=== PATIENT | male | born 1975 | race American Indian/Alaskan Native ===

== ENCOUNTER 2017-09-22 22:56 | Emergency (ER) | payer MEDICAID ==
--- NOTE | 2017-09-23 00:34 | Emergency Department Report ---
- General Chief complaint: Skin Rash Stated complaint: RASH ON FEET Time Seen by Provider: 09/22/17 23:59 Source: patient Mode of arrival: Ambulatory Limitations: No Limitations - History of Present Illness Initial comments: Patient states that he was in nursing home and was released on September 08, and about 3 weeks ago started to notice an itchy rash on his trunk and extremities, especially itchy on his hands and feet; about 1 week ago, started to notice that the area on his left foot that he was scratching a lot started to become swollen and painful, popped a few spots to drain pus; denies fevers or pain with ambulation; H/O cellulitis on his left lower leg that he has taken bactrim and clindamycin in past MD complaint: rash Onset/Timin -: week(s) Tetanus Up to Date: unsure Location: chest, back, LUE, RUE, L hand, R hand, LLE, RLE, L foot, R foot Quality: burning Consistency: constant Worsens with: palpation, other (scratching) Associated symptoms: itching Treatments Prior to Arrival: Benadryl (helped a little with itching) - Related Data Previous Rx's Medication Instructions Recorded Last Taken Type Cephalexin [Keflex] 500 mg PO QID #40 capsule 09/23/17 Unknown Rx Permethrin [Elimite] 60 gm TP ONCE #1 cream..g. 09/23/17 Unknown Rx hydrOXYzine HCL [Atarax] 25 mg PO Q6HR PRN #20 tablet 09/23/17 Unknown Rx traMADol [Ultram 50 MG tab] 50 mg PO Q6HR PRN #10 tablet 09/23/17 Unknown Rx Allergies Allergy/AdvReac Type Severity Reaction Status Date / Time No Known Allergies Allergy Unverified 09/22/17 23:31 Abscess Boil HPI - HPI Chief Complaint: Skin Rash Stated Complaint: RASH ON FEET Time Seen by Provider: 09/22/17 23:59 Home Medications: Previous Rx's Medication Instructions Recorded Last Taken Type Cephalexin [Keflex] 500 mg PO QID #40 capsule 09/23/17 Unknown Rx Permethrin [Elimite] 60 gm TP ONCE #1 cream..g. 09/23/17 Unknown Rx hydrOXYzine HCL [Atarax] 25 mg PO Q6HR PRN #20 tablet 09/23/17 Unknown Rx traMADol [Ultram 50 MG tab] 50 mg PO Q6HR PRN #10 tablet 09/23/17 Unknown Rx Allergies/Adverse Reactions: Allergies Allergy/AdvReac Type Severity Reaction Status Date / Time No Known Allergies Allergy Unverified 09/22/17 23:31 ED Review of Systems ROS: Stated complaint: RASH ON FEET Other details as noted in HPI Constitutional: denies: chills, fever, weakness Respiratory: denies: cough, shortness of breath Cardiovascular: denies: chest pain, palpitations Gastrointestinal: denies: nausea, vomiting Musculoskeletal: back pain, other (left foot pain) Skin: rash, lesions ED Past Medical Hx - Surgical History Additional Surgical History: Left leg surgery - Social History Smoking Status: Current Every Day Smoker Substance Use Type: None - Medications Home Medications: Home Medications Medication Instructions Recorded Confirmed Last Taken Type Cephalexin [Keflex] 500 mg PO QID #40 capsule 09/23/17 Unknown Rx Permethrin [Elimite] 60 gm TP ONCE #1 cream..g. 09/23/17 Unknown Rx hydrOXYzine HCL [Atarax] 25 mg PO Q6HR PRN #20 tablet 09/23/17 Unknown Rx traMADol [Ultram 50 MG tab] 50 mg PO Q6HR PRN #10 tablet 09/23/17 Unknown Rx ED Physical Exam - General Limitations: No Limitations General appearance: alert, in no apparent distress - Head Head exam: Present: atraumatic, normocephalic, normal inspection - Eye Eye exam: Present: normal appearance, PERRL, EOMI - ENT ENT exam: Present: normal orophraynx, mucous membranes moist - Neck Neck exam: Present: full ROM - Respiratory Respiratory exam: Present: normal lung sounds bilaterally. Absent: respiratory distress, wheezes, rales, rhonchi, stridor - Cardiovascular Cardiovascular Exam: Present: regular rate, normal rhythm, normal heart sounds - Extremities Exam Extremities exam: Present: other (Left lower leg - old scars present on anterior aspect of leg, along with some divets in skin, nontender, no erythema or edema, no bleeding or drainage) - Neurological Exam Neurological exam: Present: alert, oriented X3, normal gait - Psychiatric Psychiatric exam: Present: normal affect, normal mood - Skin Skin exam: Present: other (Left foot - mild edema and erythema on medial aspect of foot with some excoriations, no active bleeding or drainage, mild TTP, no streaking present, no fluctuant areas) ED Course Vital Signs 09/22/17 23:17 Temperature 98.2 F Pulse Rate 85 Respiratory 16 Rate Blood Pressure 130/83 O2 Sat by Pulse 99 Oximetry ED Medical Decision Making - Medical Decision Making Discussed patient with Dr. Handley, plan made to treat for possible scabies and for his left foot cellulitis; told patient to complete ABX and to use elimite and follow up with PCP in 48 hours for re-assessment of his foot, or to return to ED sooner if he notices worsening of sxs like worse swelling, streaking erythema and fevers, he verbalized understanding Critical care attestation.: If time is entered above; I have spent that time in minutes in the direct care of this critically ill patient, excluding procedure time. ED Disposition Clinical Impression: Pruritic dermatitis, Cellulitis of left foot Disposition: DC- TO HOME OR SELFCARE Is pt being admited?: No Condition: Stable Instructions: Cellulitis (ED), Scabies (ED) Prescriptions: Cephalexin [Keflex] 500 mg PO QID #40 capsule hydrOXYzine HCL [Atarax] 25 mg PO Q6HR PRN #20 tablet PRN Reason: Itching Permethrin [Elimite] 60 gm TP ONCE #1 cream..g. traMADol [Ultram 50 MG tab] 50 mg PO Q6HR PRN #10 tablet PRN Reason: Pain Referrals: PRIMARY CARE,MD [Primary Care Provider] - 3-5 Days Time of Disposition: 00:40 Print Language: TURKISH
[2017-09-23 00:57] VITALS: BP 135/81
== END 2017-09-23 00:58 | disposition home or self-care (01) ==
LOC: ED 22:56
DX: L30.8 Other specified dermatitis (principal); L03.116 Cellulitis of left lower limb; F17.200 Nicotine dependence, unspecified, uncomplicated
CPT/HCPCS: 99282

== ENCOUNTER 2017-10-15 09:39 | Emergency (ER) | payer MEDICAID ==
[2017-10-15 10:18] VITALS: BP 126/89
--- NOTE | 2017-10-15 11:52 | Emergency Department Report ---
- General Chief complaint: Skin Rash Stated complaint: RASH Time Seen by Provider: 10/15/17 11:00 Source: patient Mode of arrival: Ambulatory Limitations: No Limitations - History of Present Illness Initial comments: This is a 41-year-old male nontoxic, well nourished in appearance, no acute signs of distress presents to the ED with c/o of itching with crusted circular rash to the back, fingers and feet. Patient is also complaining of left distal tib/fib region cellulitis. Patient stated he was seen her in the ED on 2016 and was diagnosed with scabies and left lower leg cellulitis and received prescription for Keflex and permethrin cream. Patient treated he did not take Keflex because he took one dose and patient that his symptoms had not improved of his cellulitis. Patient usually gets prescription for clindamycin and Bactrim. Patient that he return to the emergency room because now there is crusting today region as well as itching and has not subsided. Patient denies any joint swelling, joint redness, fever, chills, nausea, chest pain, shortness of breath, vomiting, headache or stiff neck. Denies any allergies or significant past medical history. MD complaint: rash, other (cellulitis) -: week(s) Tetanus Up to Date: yes Location: generalized Severity: mild Severity scale (0 -10): 8 Quality: burning Consistency: constant Improves with: none Worsens with: none Context: none Associated symptoms: itching Treatments Prior to Arrival: none - Related Data Previous Rx's Medication Instructions Recorded Last Taken Type Cephalexin [Keflex] 500 mg PO QID #40 capsule 09/23/17 Unknown Rx Permethrin [Elimite] 60 gm TP ONCE #1 cream..g. 09/23/17 Unknown Rx hydrOXYzine HCL [Atarax] 25 mg PO Q6HR PRN #20 tablet 09/23/17 Unknown Rx traMADol [Ultram 50 MG tab] 50 mg PO Q6HR PRN #10 tablet 09/23/17 Unknown Rx Clindamycin [Clindamycin CAP] 300 mg PO Q8H 7 Days cap 10/15/17 Unknown Rx Ivermectin (Nf) 15 mg PO DAILY 1 Days tablet 10/15/17 Unknown Rx Permethrin 5% [Acticin 5% CREAM] 1 applicatio TP ONCE #1 tube 10/15/17 Unknown Rx Allergies Allergy/AdvReac Type Severity Reaction Status Date / Time No Known Allergies Allergy Unverified 09/22/17 23:31 Abscess Boil HPI - HPI Chief Complaint: Skin Rash Stated Complaint: RASH Time Seen by Provider: 10/15/17 11:00 Home Medications: Previous Rx's Medication Instructions Recorded Last Taken Type Cephalexin [Keflex] 500 mg PO QID #40 capsule 09/23/17 Unknown Rx Permethrin [Elimite] 60 gm TP ONCE #1 cream..g. 09/23/17 Unknown Rx hydrOXYzine HCL [Atarax] 25 mg PO Q6HR PRN #20 tablet 09/23/17 Unknown Rx traMADol [Ultram 50 MG tab] 50 mg PO Q6HR PRN #10 tablet 09/23/17 Unknown Rx Clindamycin [Clindamycin CAP] 300 mg PO Q8H 7 Days cap 10/15/17 Unknown Rx Ivermectin (Nf) 15 mg PO DAILY 1 Days tablet 10/15/17 Unknown Rx Permethrin 5% [Acticin 5% CREAM] 1 applicatio TP ONCE #1 tube 10/15/17 Unknown Rx Allergies/Adverse Reactions: Allergies Allergy/AdvReac Type Severity Reaction Status Date / Time No Known Allergies Allergy Unverified 09/22/17 23:31 ED Review of Systems ROS: Stated complaint: RASH Other details as noted in HPI Constitutional: denies: chills, fever Eyes: denies: eye pain, eye discharge, vision change ENT: denies: ear pain, throat pain Respiratory: denies: cough, shortness of breath, wheezing Cardiovascular: denies: chest pain, palpitations Endocrine: no symptoms reported Gastrointestinal: denies: abdominal pain, nausea, diarrhea Genitourinary: denies: urgency, dysuria Musculoskeletal: denies: back pain, joint swelling, arthralgia Skin: pruritus, other (circular with crusting ). denies: rash, lesions Neurological: denies: headache, weakness, paresthesias Psychiatric: denies: anxiety, depression Hematological/Lymphatic: denies: easy bleeding, easy bruising ED Past Medical Hx - Past Medical History Previous Medical History?: No - Surgical History Past Surgical History?: Yes Additional Surgical History: Left leg surgery - Social History Smoking Status: Current Every Day Smoker Substance Use Type: Alcohol - Medications Home Medications: Home Medications Medication Instructions Recorded Confirmed Last Taken Type Cephalexin [Keflex] 500 mg PO QID #40 capsule 09/23/17 Unknown Rx Permethrin [Elimite] 60 gm TP ONCE #1 cream..g. 09/23/17 Unknown Rx hydrOXYzine HCL [Atarax] 25 mg PO Q6HR PRN #20 tablet 09/23/17 Unknown Rx traMADol [Ultram 50 MG tab] 50 mg PO Q6HR PRN #10 tablet 09/23/17 Unknown Rx Clindamycin [Clindamycin CAP] 300 mg PO Q8H 7 Days cap 10/15/17 Unknown Rx Ivermectin (Nf) 15 mg PO DAILY 1 Days tablet 10/15/17 Unknown Rx Permethrin 5% [Acticin 5% CREAM] 1 applicatio TP ONCE #1 tube 10/15/17 Unknown Rx ED Physical Exam - General Limitations: No Limitations General appearance: alert, in no apparent distress - Head Head exam: Present: atraumatic, normocephalic - Eye Eye exam: Present: normal appearance - ENT ENT exam: Present: mucous membranes moist - Neck Neck exam: Present: normal inspection - Respiratory Respiratory exam: Present: normal lung sounds bilaterally. Absent: respiratory distress - Cardiovascular Cardiovascular Exam: Present: regular rate, normal rhythm. Absent: systolic murmur, diastolic murmur, rubs, gallop - GI/Abdominal GI/Abdominal exam: Present: soft, normal bowel sounds - Rectal Rectal exam: Present: deferred - Extremities Exam Extremities exam: Present: normal inspection, full ROM, tenderness, normal capillary refill. Absent: pedal edema, joint swelling, calf tenderness - Expanded Lower Extremity Exam Left Hip exam: Present: normal inspection, full ROM Upper Leg exam: Present: normal inspection, full ROM Knee exam: Present: normal inspection, full ROM Lower Leg exam: Present: normal inspection, full ROM, tenderness, erythema. Absent: swelling, abrasion, laceration, ecchymosis, deformity, crepidus, dislocation, palpable cord, Dominic's sign Ankle exam: Present: normal inspection, full ROM Foot/Toe exam: Present: normal inspection, full ROM Neuro vascular tendon exam: Present: no vascular compromise. Absent: pulse deficit, abnormal cap refill, motor deficit, sensory deficit, tendon deficit, extremity cold to touch, pallor, abnormal 2-point discrimination, decreased fine /light touch, foot drop, peroneal nerve deficit, significant pain with passive ROM of distal joint Gait: Positive: observed and normal 1 - cellulitis - Back Exam Back exam: Present: normal inspection, full ROM. Absent: tenderness, CVA tenderness (R), CVA tenderness (L), muscle spasm, paraspinal tenderness, vertebral tenderness, rash noted - Neurological Exam Neurological exam: Present: alert, oriented X3 - Psychiatric Psychiatric exam: Present: normal affect, normal mood - Skin Skin exam: Present: warm, dry, intact, normal color, other (left foot and bilateral swab hands and back- circular excoriations.). Absent: rash - Other Other exam information: Left lower leg scars present with slight erythema. Nontender or edema or pus or drainage noted. No induration or fluctuance. ED Course Vital Signs 10/15/17 10:15 Temperature 98.9 F Pulse Rate 92 H Respiratory 16 Rate Blood Pressure 126/89 O2 Sat by Pulse 97 Oximetry - Reevaluation(s) Reevaluation #1: 10/15/17 12:00 Patient is speaking in full sentences with no signs of distress noted. ED Medical Decision Making - Medical Decision Making 41-year-old male that presents with a crusty scabies and cellulitis of left lower leg. Patient is stable and was examined by me. There is no signs of any joint swelling or joint redness. No signs of joint cellulitis. Patient is treated with gentamicin, ivermectin and permethrin at d/c. Patient was instructed Follow-up with a primary care doctor in 24 hours or if symptoms worsen and continue return to emergency room as soon as possible. At time time of discharge, the patient does not seem toxic or ill in appearance. No acute signs of distress noted. Patient agrees to discharge treatment plan of care. No further questions noted by the patient. Critical care attestation.: If time is entered above; I have spent that time in minutes in the direct care of this critically ill patient, excluding procedure time. ED Disposition Clinical Impression: Scabies Cellulitis Qualifiers: Site of cellulitis: extremity Site of cellulitis of extremity: lower extremity Laterality: left Qualified Code(s): L03.116 - Cellulitis of left lower limb Disposition: DC- TO HOME OR SELFCARE Is pt being admited?: No Does the pt Need Aspirin: No Condition: Stable Instructions: Scabies (ED), Permethrin (On the skin), Ivermectin (By mouth), Clindamycin (By mouth) Additional Instructions: Follow-up with a primary care doctor in 24 hours or if symptoms worsen and continue return to emergency room as soon as possible. Do not consume any alcohol while taking antibiotics Prescriptions: Clindamycin [Clindamycin CAP] 300 mg PO Q8H 7 Days cap Ivermectin (Nf) 15 mg PO DAILY 1 Days tablet Permethrin 5% [Acticin 5% CREAM] 1 applicatio TP ONCE #1 tube Referrals: PRIMARY CARE, [Primary Care Provider] - 3-5 Days [facility] MD [Staff Physician] - 3-5 Days [facility] [Outside] - 3-5 Days [facility] [Outside] - 3-5 Days Forms: Work/School Release Form(ED)
== END 2017-10-15 12:25 | disposition home or self-care (01) ==
LOC: ED 09:39
DX: L03.116 Cellulitis of left lower limb (principal); B86 Scabies; F17.200 Nicotine dependence, unspecified, uncomplicated; Z98.890 Other specified postprocedural states
CPT/HCPCS: 99282

== ENCOUNTER 2018-07-03 20:56 | Emergency (ER) | payer MEDICAID ==
[2018-07-03 21:55] LABS: Basophils # (Auto) 0.1 K/mm3 (0.0-0.1); Basophils % (Auto) 0.8 % (0.0-1.8); Eosinophils # (Auto) 0.3 K/mm3 (0.0-0.4); Eosinophils % (Auto) 2.9 % (0.0-4.3); Hematocrit 38.7 % (35.5-45.6); Hemoglobin 12.5 gm/dl (11.8-15.2); Lymphocytes # (Auto) 1.7 K/mm3 (1.2-5.4); Lymphocytes % (Auto) 17.1 % (13.4-35.0); Mean Corpuscular HGB Conc 32 % (32-34); Mean Corpuscular Volume 79 fl (84-94); Monocytes # (Auto) 1.3 K/mm3 (0.0-0.8); Monocytes % (Auto) 13.3 % (0.0-7.3); Platelet Count 309 K/mm3 (140-440); Red Cell Distribution Width 17.4 % (13.2-15.2)
[2018-07-03 22:02] LABS: Mean Corpuscular Hemoglobin 26 pg (28-32)
[2018-07-03 22:09] LABS: BUN/Creatinine Ratio 14; Blood Urea Nitrogen 13 mg/dL (9-20); Calcium 9.6 mg/dL (8.4-10.2); Hemolysis Index 13
[2018-07-04 00:14] LABS: Bilirubin,Urine NEG (Negative); Blood,Urine NEG (Negative); Color,Urine Yellow (Yellow); Mucus,Urine FEW /HPF; Protein,Urine <15 mg/dL mg/dL (Negative); Urobilinogen,Urine < 2.0 mg/dL (<2.0)
[2018-07-04 01:43] LABS: Amphetamine Screen,Urine PRESUMPTIVE NEGATIVE; Cannabinoid Screen,Urine PRESUMPTIVE NEGATIVE; Cocaine Screen,Urine PRESUMPTIVE NEGATIVE; Methadone Screen,Urine PRESUMPTIVE NEGATIVE; Opiate Screen,Urine PRESUMPTIVE NEGATIVE
[2018-07-04 02:11] LABS: Benzodiazepines Screen,Urine PRESUMPTIVE POSITIVE
[2018-07-04] MEDS ORDERED: NORCO 7.5/325 ONE (04:10)
[2018-07-04] MEDS ORDERED: NORCO 7.5/325 PO ONE (04:10)
[2018-07-04 09:29] VITALS: BP 113/65
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
== END 2018-07-04 18:00 | disposition home or self-care (01) ==
LOC: ED 20:56
DX: F32.9 Major depressive disorder, single episode, unspecified (principal); M79.605 Pain in left leg; L90.5 Scar conditions and fibrosis of skin; F17.200 Nicotine dependence, unspecified, uncomplicated
CPT/HCPCS: 36415; 80048; 80307; 81001; 85025; 99283; G0480; 80320

== ENCOUNTER 2018-07-04 22:32 | Emergency (ER) | payer MEDICAID ==
[2018-07-04 23:14] VITALS: BP 124/95
[2018-07-05] MEDS ORDERED: TYLENOL ONE (01:50)
[2018-07-05] MEDS ORDERED: TYLENOL PO ONE (01:52)
== END 2018-07-04 23:40 | disposition left against medical advice (07) ==
LOC: ED 22:32
DX: L03.116 Cellulitis of left lower limb (principal); Z53.21 Procedure and treatment not carried out due to patient leaving prior to being seen by health care provider

== ENCOUNTER → 2018-07-04 | Emergency (ER) | payer MEDICAID ==
[2018-07-04 19:31] VITALS: BP 119/78
== END ==
LOC: ED 19:10
DX: F32.9 Major depressive disorder, single episode, unspecified (principal); Z53.21 Procedure and treatment not carried out due to patient leaving prior to being seen by health care provider

== ENCOUNTER 2018-07-05 20:02 | Emergency (ER) | payer MEDICAID ==
[2018-07-05 21:54] LABS: Basophils # (Auto) 0.1 K/mm3 (0.0-0.1); Basophils % (Auto) 0.8 % (0.0-1.8); Eosinophils # (Auto) 0.1 K/mm3 (0.0-0.4); Eosinophils % (Auto) 0.5 % (0.0-4.3); Hematocrit 42.1 % (35.5-45.6); Hemoglobin 13.6 gm/dl (11.8-15.2); Lymphocytes # (Auto) 1.9 K/mm3 (1.2-5.4); Lymphocytes % (Auto) 13.4 % (13.4-35.0); Mean Corpuscular HGB Conc 32 % (32-34); Mean Corpuscular Volume 78 fl (84-94); Monocytes # (Auto) 1.8 K/mm3 (0.0-0.8); Monocytes % (Auto) 12.1 % (0.0-7.3); Platelet Count 338 K/mm3 (140-440); Red Blood Count 5.38 M/mm3 (3.65-5.03); Red Cell Distribution Width 17.2 % (13.2-15.2)
[2018-07-05 21:56] LABS: Mean Corpuscular Hemoglobin 25 pg (28-32)
[2018-07-05 22:09] LABS: BUN/Creatinine Ratio 15; Blood Urea Nitrogen 15 mg/dL (9-20); Calcium 9.9 mg/dL (8.4-10.2); Hemolysis Index 20
[2018-07-05] MEDS ORDERED: VITAMIN B-1 100 MG, FOLVITE 1 MG, INFUVITE 10 ML in NACL 0.9% 1000 ML 1,000 ML IV ONE (23:08)
[2018-07-05] MEDS ORDERED: NACL 0.9% 1000 ML 1,000 ML IV ONE (23:09)
[2018-07-05] MEDS ORDERED: ATIVAN IM PRN (23:22)
[2018-07-05] MEDS ORDERED: HALDOL IM PRN (23:22)
[2018-07-06 00:53] LABS: BUN/Creatinine Ratio 14; Blood Urea Nitrogen 14 mg/dL (9-20); Calcium 8.7 mg/dL (8.4-10.2); Hemolysis Index 5
--- NOTE | 2018-07-06 01:01 | Emergency Department Report ---
ED General Adult HPI - General Chief complaint: Psych Stated complaint: LEFT LEG WOUND/MH EVAL Time Seen by Provider: 07/05/18 23:06 Source: patient, EMS (ems notes not available at time of chart dictation), RN notes reviewed, old records reviewed Mode of arrival: Stretcher Limitations: Altered Mental Status, Physical Limitation, Other (patient is intoxicated) - History of Present Illness Initial comments: This is a 42-year-old gentleman who is not known to this provider previously, who presents to the ER with alcohol intoxication. He is very sleepy, and can therefore not describe exacerbating or relieving factors. When I asked the patient open and close ended questions, he turns over and tries to go to sleep. No additional history is available at this time. Apparently, the patient presented 2 days ago with a complaint of depression, and was seen by the crisis team and cleared for discharge. -: unknown Quality: other Consistency: other Improves with: other Worsens with: other Associated Symptoms: other - Related Data Home Medications Medication Instructions Recorded Confirmed Last Taken rOPINIRole [Requip] 0.25 mg PO DAILY 07/05/18 07/05/18 Unknown Previous Rx's Medication Instructions Recorded Last Taken Type FLUoxetine [PROzac] 20 mg PO QDAY capsule 06/28/18 Unknown Rx traZODone [Desyrel] 50 mg PO QHS PRN tablet 06/28/18 Unknown Rx Allergies Allergy/AdvReac Type Severity Reaction Status Date / Time No Known Allergies Allergy Verified 07/06/18 07:19 ED Review of Systems ROS: Stated complaint: LEFT LEG WOUND/MH EVAL Other details as noted in HPI Comment: Unobtainable due to pts medical conditions ED Past Medical Hx - Past Medical History Hx Hypertension: No Hx Heart Attack/AMI: No Hx Congestive Heart Failure: No Hx Diabetes: No Hx Deep Vein Thrombosis: No Hx Asthma: No Hx COPD: No Additional medical history: Chronic Lower leg wound - Surgical History Hx Coronary Stent: No Hx Pacemaker: No Hx Internal Defibrillator: No Hx Appendectomy: No Additional Surgical History: Left leg surgery, "about 12 sxs since 2013" - Social History Smoking Status: Current Every Day Smoker Substance Use Type: Alcohol - Medications Home Medications: Home Medications Medication Instructions Recorded Confirmed Last Taken Type FLUoxetine [PROzac] 20 mg PO QDAY capsule 06/28/18 07/05/18 Unknown Rx traZODone [Desyrel] 50 mg PO QHS PRN tablet 06/28/18 07/05/18 Unknown Rx rOPINIRole [Requip] 0.25 mg PO DAILY 07/05/18 07/05/18 Unknown History ED Physical Exam - General General appearance: appears intoxicated, lethargic - Head Head exam: Present: atraumatic, normocephalic - Eye Eye exam: Present: EOMI. Absent: normal appearance (pupils 1 mm and reactive to light) - ENT ENT exam: Present: normal exam, normal orophraynx, normal external ear exam - Neck Neck exam: Present: normal inspection. Absent: tenderness, meningismus - Respiratory Respiratory exam: Present: normal lung sounds bilaterally. Absent: respiratory distress, wheezes, rales, rhonchi, stridor, chest wall tenderness, accessory muscle use, decreased breath sounds, prolonged expiratory - Cardiovascular Cardiovascular Exam: Present: regular rate, normal rhythm, normal heart sounds. Absent: bradycardia, tachycardia, irregular rhythm, systolic murmur, diastolic murmur, rubs, gallop - GI/Abdominal GI/Abdominal exam: Present: soft, normal bowel sounds. Absent: distended, tenderness, guarding, rebound, rigid, pulsatile mass - Extremities Exam Extremities exam: Present: normal inspection (back appearing wounds in the lower extremities, left greater than right, with no redness, pus or streaking, and soft compartments), other (2+ pulses noted in the bilateral upper, lower extremities. Compartments soft. No long bony tenderness. The pelvis is stable.). Absent: tenderness, calf tenderness - Back Exam Back exam: Absent: tenderness, CVA tenderness (R), paraspinal tenderness - Neurological Exam Neurological exam: Present: altered - Psychiatric Psychiatric exam: Present: other (patient is sleepy and does not answer all questions) ED Course Vital Signs 07/05/18 07/06/18 20:52 05:54 Temperature 98.6 F 97.7 F Pulse Rate 94 H 57 L Respiratory 18 18 Rate Blood Pressure 117/76 Blood Pressure 112/72 [Left] O2 Sat by Pulse 97 96 Oximetry - Reevaluation(s) Reevaluation #1: 07/06/18 01:05 Differential diagnosis, including but not limited to: Alcohol intoxication, intracranial injury, cervical spine injury, dehydration, history of polysubstance use Assessment and plan: 42-year-old male who was recently seen and evaluated by the crisis mental health team within the past he presents with alcohol intoxication. The patient clearly cannot care for himself and is very impaired and is therefore placed on a 2013. Initial laboratory studies suggested dehydration, and leukocytosis. This leukocytosis is most likely a stress reaction. Based on his current wound to history and physical, especially compared to his prior visit records, I am not suspicious for bacterial infection. The patient had a urinalysis 2 days ago which was negative for urinary tract infection. The patient at one point during his stay in the emergency room that somewhat agitated, and required Haldol and Ativan for his safety, and diagnostic workup. He is given IV fluids and a banana bag. 07/06/18 01:07 Reevaluation #2: 07/06/18 01:35 Care is transferred to the overnight physician, Dr. Mendoza, to reassess patient for clinical sobriety. With plan to discharge patient when alert and oriented 3, able to walk with a steady gait, and able to exhibit rational decision making capacity. At this point time, he does not require a 1013. ED Medical Decision Making - Lab Data Result diagrams: 07/05/18 21:40 07/06/18 00:24 Vital Signs 07/05/18 20:52 Temperature 98.6 F Pulse Rate 94 H Respiratory 18 Rate Blood Pressure 117/76 O2 Sat by Pulse 97 Oximetry Lab Results 07/05/18 07/05/18 07/05/18 Range/Units 21:40 21:40 21:40 WBC (4.5-11.0) K/mm3 RBC (3.65-5.03) M/mm3 Hgb (11.8-15.2) gm/dl Hct (35.5-45.6) % MCV (84-94) fl MCH (28-32) pg MCHC (32-34) % RDW (13.2-15.2) % Plt Count (140-440) K/mm3 Lymph % (Auto) (13.4-35.0) % Castro % (Auto) (0.0-7.3) % Eos % (Auto) (0.0-4.3) % Baso % (Auto) (0.0-1.8) % Lymph # (1.2-5.4) K/mm3 Castro # (0.0-0.8) K/mm3 Eos # (0.0-0.4) K/mm3 Baso # (0.0-0.1) K/mm3 Seg Neutrophils % (40.0-70.0) % Seg Neutrophils # (1.8-7.7) K/mm3 Sodium 134 L (137-145) mmol/L Potassium 4.7 (3.6-5.0) mmol/L Chloride 97.2 L (98-107) mmol/L Carbon Dioxide 16 L D (22-30) mmol/L Anion Gap 26 mmol/L BUN 15 (9-20) mg/dL Creatinine 1.0 (0.8-1.5) mg/dL Estimated GFR > 60 ml/min BUN/Creatinine Ratio 15 % Glucose 80 (75-100) mg/dL Calcium 9.9 (8.4-10.2) mg/dL Magnesium (1.7-2.3) mg/dL Total Creatine Kinase (55-170) units/L Salicylates < 0.3 L (2.8-20.0) mg/dL Acetaminophen < 5.0 L (10.0-30.0) ug/mL Plasma/Serum Alcohol (0-0.07) % 07/05/18 07/05/18 07/05/18 Range/Units 21:40 21:40 23:30 WBC 14.5 H (4.5-11.0) K/mm3 RBC 5.38 H (3.65-5.03) M/mm3 Hgb 13.6 (11.8-15.2) gm/dl Hct 42.1 (35.5-45.6) % MCV 78 L (84-94) fl MCH 25 L (28-32) pg MCHC 32 (32-34) % RDW 17.2 H (13.2-15.2) % Plt Count 338 (140-440) K/mm3 Lymph % (Auto) 13.4 (13.4-35.0) % Castro % (Auto) 12.1 H (0.0-7.3) % Eos % (Auto) 0.5 (0.0-4.3) % Baso % (Auto) 0.8 (0.0-1.8) % Lymph # 1.9 (1.2-5.4) K/mm3 Castro # 1.8 H (0.0-0.8) K/mm3 Eos # 0.1 (0.0-0.4) K/mm3 Baso # 0.1 (0.0-0.1) K/mm3 Seg Neutrophils % 73.2 H (40.0-70.0) % Seg Neutrophils # 10.6 H (1.8-7.7) K/mm3 Sodium (137-145) mmol/L Potassium (3.6-5.0) mmol/L Chloride (98-107) mmol/L Carbon Dioxide (22-30) mmol/L Anion Gap mmol/L BUN (9-20) mg/dL Creatinine (0.8-1.5) mg/dL Estimated GFR ml/min BUN/Creatinine Ratio % Glucose (75-100) mg/dL Calcium (8.4-10.2) mg/dL Magnesium 2.30 (1.7-2.3) mg/dL Total Creatine Kinase 213 H (55-170) units/L Salicylates (2.8-20.0) mg/dL Acetaminophen (10.0-30.0) ug/mL Plasma/Serum Alcohol 0.17 H (0-0.07) % 08//18 Range/Units 00:24 WBC (4.5-11.0) K/mm3 RBC (3.65-5.03) M/mm3 Hgb (11.8-15.2) gm/dl Hct (35.5-45.6) % MCV (84-94) fl MCH (28-32) pg MCHC (32-34) % RDW (13.2-15.2) % Plt Count (140-440) K/mm3 Lymph % (Auto) (13.4-35.0) % Castro % (Auto) (0.0-7.3) % Eos % (Auto) (0.0-4.3) % Baso % (Auto) (0.0-1.8) % Lymph # (1.2-5.4) K/mm3 Castro # (0.0-0.8) K/mm3 Eos # (0.0-0.4) K/mm3 Baso # (0.0-0.1) K/mm3 Seg Neutrophils % (40.0-70.0) % Seg Neutrophils # (1.8-7.7) K/mm3 Sodium 137 (137-145) mmol/L Potassium 4.5 (3.6-5.0) mmol/L Chloride 96.8 L (98-107) mmol/L Carbon Dioxide 19 L (22-30) mmol/L Anion Gap 26 mmol/L BUN 14 (9-20) mg/dL Creatinine 1.0 (0.8-1.5) mg/dL Estimated GFR > 60 ml/min BUN/Creatinine Ratio 14 % Glucose 105 H (75-100) mg/dL Calcium 8.7 (8.4-10.2) mg/dL Magnesium (1.7-2.3) mg/dL Total Creatine Kinase (55-170) units/L Salicylates (2.8-20.0) mg/dL Acetaminophen (10.0-30.0) ug/mL Plasma/Serum Alcohol (0-0.07) % - Radiology Data Radiology results: pending Critical care attestation.: If time is entered above; I have spent that time in minutes in the direct care of this critically ill patient, excluding procedure time. ED Disposition Clinical Impression: Alcohol abuse Disposition: DC-01 TO HOME OR SELFCARE Is pt being admited?: No Does the pt Need Aspirin: No Condition: Stable Instructions: Polysubstance Abuse (ED) Additional Instructions: Discontinue consumption of alcohol and illegal drugs. Follow-up with the primary care doctor or mental health specialist within the next 7-10 days. Long -term complications of alcohol consumption included disability, loss of quality of life, paralysis. Please return to the ER right away with new, worsening or different symptoms, homicidality or suicidality, projectile vomiting, change in mental status, inability to tolerate liquid feeds. Referrals: PRIMARY CARE, [Primary Care Provider] - 3-5 Days [facility] [Provider Group] - [facility]
--- NOTE | 2018-07-06 01:28 | Cat Scan Report ---
FINAL REPORT EXAM: CT HEAD/BRAIN WO CON HISTORY: etoh ams TECHNIQUE: CT was performed from the foramen magnum through the vertex in the axial plane without the use of intravenous contrast. PRIORS: None. FINDINGS: The rivera/white matter attenuation pattern is normal. There is no mass lesion or mass effect. There are no abnormal extra-axial fluid collections. There is no evidence of acute intracranial hemorrhage or infarct. The ventricles are of normal size and configuration. The skull and orbits are unremarkable. The visualized paranasal sinuses are clear. IMPRESSION: Normal CT of the head.
--- NOTE | 2018-07-06 02:03 | Cat Scan Report ---
FINAL REPORT EXAM: CT CERVICAL SPINE WO CON HISTORY: etoh ams TECHNIQUE: Helical axial CT imaging of the cervical spine. Images are reconstructed in the sagittal and coronal planes. PRIORS: None. FINDINGS: The vertebral bodies have normal height and alignment. There is no evidence of fracture or subluxation. There is degenerative disc disease at C4-5 and C6-7. The paraspinous soft tissues are unremarkable. IMPRESSION: No evidence of acute fracture or subluxation.
[2018-07-06 05:54] VITALS: BP 112/72
== END 2018-07-06 05:50 | disposition home or self-care (01) ==
LOC: ED 20:02
DX: F10.10 Alcohol abuse, uncomplicated (principal); F17.200 Nicotine dependence, unspecified, uncomplicated
CPT/HCPCS: 36415; 70450; 72125; 80048; 82550; 83735; 85025; 96365; 96366; 96372; 99285; G0480; J1630; J2060; J3411; J7030; 80320

== ENCOUNTER 2018-07-06 05:43 | Emergency (ER) | payer MEDICAID ==
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
[2018-07-06 18:44] VITALS: BP 142/96
== END 2018-07-06 21:00 | disposition left against medical advice (07) ==
LOC: ED 05:43
DX: F32.89 Other specified depressive episodes (principal); F10.10 Alcohol abuse, uncomplicated; F14.10 Cocaine abuse, uncomplicated; F17.200 Nicotine dependence, unspecified, uncomplicated
CPT/HCPCS: 99283

== ENCOUNTER 2018-07-08 01:27 | Emergency (ER) | payer MEDICAID ==
[2018-07-08 04:00] LABS: Hematocrit 39.6 % (35.5-45.6); Mean Corpuscular HGB Conc 33 % (32-34); Mean Corpuscular Volume 78 fl (84-94); Platelet Count 315 K/mm3 (140-440); Red Blood Count 5.09 M/mm3 (3.65-5.03); Red Cell Distribution Width 16.5 % (13.2-15.2)
[2018-07-08 04:04] LABS: BUN/Creatinine Ratio 16; Blood Urea Nitrogen 21 mg/dL (9-20); Calcium 9.4 mg/dL (8.4-10.2); Hemolysis Index 178
[2018-07-08 04:07] LABS: Mean Corpuscular Hemoglobin 26 pg (28-32)
[2018-07-08 04:40] LABS: Bilirubin,Urine NEG (Negative); Blood,Urine NEG (Negative); Color,Urine Yellow (Yellow); Protein,Urine <15 mg/dL mg/dL (Negative); Sperm,Urine FEW /HPF (NP)
[2018-07-08 04:43] LABS: Amphetamine Screen,Urine PRESUMPTIVE NEGATIVE; Cannabinoid Screen,Urine PRESUMPTIVE NEGATIVE; Methadone Screen,Urine PRESUMPTIVE NEGATIVE; Opiate Screen,Urine PRESUMPTIVE NEGATIVE
[2018-07-08 04:56] LABS: Benzodiazepines Screen,Urine PRESUMPTIVE POSITIVE; Cocaine Screen,Urine PRESUMPTIVE POSITIVE
[2018-07-08 06:47] LABS: Anisocytosis 1+; Band Neutrophils # (Manual) 0.3 K/mm3; Hypochromasia 1+; Ovalocytes Few; Promyelocytes # (Manual) 0.3 K/mm3; Total Cells Counted 100
[2018-07-08] MEDS ORDERED: ATIVAN IM PRN (07:04)
[2018-07-08] MEDS ORDERED: HALDOL IM PRN (07:04)
[2018-07-08] MEDS ORDERED: TYLENOL PO PRN (07:04)
[2018-07-08] MEDS ORDERED: LIBRIUM PO PRN ×2 (07:05)
--- NOTE | 2018-07-08 07:06 | Emergency Department Report ---
ED General Adult HPI - General Chief complaint: Psych Stated complaint: SUICIDAL; LT LEG PAIN Time Seen by Provider: 07/08/18 06:59 Source: patient, RN notes reviewed Mode of arrival: Ambulatory Limitations: Other (the patient is a poor historian) - History of Present Illness Initial comments: This is a 42-year-old gentleman who I have evaluated in the past. He has a history of alcohol abuse and polysubstance abuse. He presents to the ER with a complaint of suicidality. He reports feeling depressed and hopeless because his son was taken away from him. He will not answer whether or not he has a plan to kill himself, and he will not answer whether or not he has access to guns or firearms. The patient declines to answer additional questions in the emergency room, and prefers to go to sleep. The patient has been seen in this ER multiple times within the past week and a half for nonspecific psychiatric complaints. I personally evaluated him for alcohol intoxication a few days ago. He was seen in the past by the crisis team and given outpatient resources. He has been seen by multiple physicians within this emergency department for various symptoms. -: unknown Radiation: other Quality: other Consistency: other Improves with: other Worsens with: other Associated Symptoms: other Treatments Prior to Arrival: other - Related Data Home Medications Medication Instructions Recorded Confirmed Last Taken rOPINIRole [Requip] 0.25 mg PO DAILY 07/05/18 07/05/18 Unknown Previous Rx's Medication Instructions Recorded Last Taken Type FLUoxetine [PROzac] 20 mg PO QDAY capsule 06/28/18 Unknown Rx traZODone [Desyrel] 50 mg PO QHS PRN tablet 06/28/18 Unknown Rx Allergies Allergy/AdvReac Type Severity Reaction Status Date / Time No Known Allergies Allergy Verified 07/06/18 07:19 ED Review of Systems ROS: Stated complaint: SUICIDAL; LT LEG PAIN Other details as noted in HPI Constitutional: malaise Psychiatric: depression, suicidal thoughts ED Past Medical Hx - Past Medical History Hx Hypertension: No Hx Heart Attack/AMI: No Hx Congestive Heart Failure: No Hx Diabetes: No Hx Deep Vein Thrombosis: No Hx Asthma: No Hx COPD: No Additional medical history: Chronic Lower leg wound - Surgical History Hx Coronary Stent: No Hx Pacemaker: No Hx Internal Defibrillator: No Hx Appendectomy: No Additional Surgical History: Left leg surgery, "about 12 sxs since 2013" - Social History Smoking Status: Current Every Day Smoker Substance Use Type: Cocaine - Medications Home Medications: Home Medications Medication Instructions Recorded Confirmed Last Taken Type FLUoxetine [PROzac] 20 mg PO QDAY capsule 06/28/18 07/05/18 Unknown Rx traZODone [Desyrel] 50 mg PO QHS PRN tablet 06/28/18 07/05/18 Unknown Rx rOPINIRole [Requip] 0.25 mg PO DAILY 07/05/18 07/05/18 Unknown History ED Physical Exam - General Limitations: Other (patient will not answer most questions.) General appearance: in no apparent distress - Head Head exam: Present: atraumatic, normocephalic - Eye Eye exam: Present: normal appearance - ENT ENT exam: Present: normal exam, normal orophraynx, normal external ear exam - Neck Neck exam: Present: normal inspection, full ROM. Absent: tenderness, meningismus - Respiratory Respiratory exam: Present: normal lung sounds bilaterally. Absent: respiratory distress, wheezes, rales, rhonchi, stridor, chest wall tenderness, accessory muscle use, decreased breath sounds, prolonged expiratory - Cardiovascular Cardiovascular Exam: Present: normal rhythm, tachycardia, normal heart sounds - GI/Abdominal GI/Abdominal exam: Present: soft. Absent: distended, tenderness, guarding, rebound, rigid, pulsatile mass - Extremities Exam Extremities exam: Present: normal inspection, full ROM, normal capillary refill , other (2+ pulses noted in the bilateral upper, lower extremities. Compartments soft. No long bony tenderness. The pelvis is stable.). Absent: tenderness, pedal edema, joint swelling, calf tenderness - Back Exam Back exam: Present: normal inspection, full ROM. Absent: tenderness, CVA tenderness (R), paraspinal tenderness, vertebral tenderness - Neurological Exam Neurological exam: Present: other (patient noted to be walking without distress. 5 out of 5 strength in 4 extremities. No obvious facial droop. Patient will not participate with the rest of the neurologic examination.) - Psychiatric Psychiatric exam: Present: depressed, suicidal ideation - Skin Skin exam: Present: warm, dry ED Course Vital Signs 07/08/18 01:31 Temperature 98.8 F Pulse Rate 107 H Respiratory 18 Rate Blood Pressure 139/88 O2 Sat by Pulse 95 Oximetry ED Medical Decision Making - Lab Data Result diagrams: 07/08/18 03:18 08/27/18 03:13 Vital Signs 07/08/18 01:31 Temperature 98.8 F Pulse Rate 107 H Respiratory 18 Rate Blood Pressure 139/88 O2 Sat by Pulse 95 Oximetry Labs 07/08/18 07/08/18 07/08/18 03:13 03:13 03:13 WBC RBC Hgb Hct MCV MCH MCHC RDW Plt Count Walton % (Auto) Add Manual Diff Total Counted Seg Neuts % (Manual) Band Neutrophils % Lymphocytes % (Manual) Reactive Lymphs % (Man) Monocytes % (Manual) Eosinophils % (Manual) Basophils % (Manual) Metamyelocytes % Myelocytes % Promyelocytes % Blast Cells % Nucleated RBC % Seg Neutrophils # Man Band Neutrophils # Lymphocytes # (Manual) Abs React Lymphs (Man) Monocytes # (Manual) Eosinophils # (Manual) Basophils # (Manual) Metamyelocytes # Myelocytes # Promyelocytes # Blast Cells # WBC Morphology Hypersegmented Neuts Hyposegmented Neuts Hypogranular Neuts Smudge Cells Toxic Granulation Toxic Vacuolation Dohle Bodies Pelger-Huet Anomaly Natty Rods Platelet Estimate Clumped Platelets Plt Clumps, EDTA Large Platelets Giant Platelets Platelet Satelliting Plt Morphology Comment RBC Morphology Dimorphic RBCs Polychromasia Hypochromasia Poikilocytosis Anisocytosis Microcytosis Macrocytosis Spherocytes Pappenheimer Bodies Sickle Cells Target Cells Tear Drop Cells Ovalocytes Helmet Cells Olvera-Spickard Bodies [place] Rings Murtaza Cells Bite Cells Crenated Cell Elliptocytes Acanthocytes (Spur) Rouleaux Hemoglobin C Crystals Schistocytes Malaria parasites Romario Bodies Hem Pathologist Commnt Sodium 132 L Potassium 5.8 H D Chloride 93.5 L Carbon Dioxide 25 Anion Gap 19 BUN 21 H Creatinine 1.3 Estimated GFR > 60 BUN/Creatinine Ratio 16 Glucose 103 H Calcium 9.4 Total Creatine Kinase Urine Color Urine Turbidity Urine pH Ur Specific [place] Urine Protein Urine Glucose (UA) Urine Ketones Urine Blood Urine Nitrite Urine Bilirubin Urine Urobilinogen Ur Leukocyte Esterase Urine WBC (Auto) Urine RBC (Auto) U Epithel Cells (Auto) Urine Sperm Salicylates < 0.3 L Urine Opiates Screen Urine Methadone Screen Acetaminophen < 5.0 L Ur Barbiturates Screen Ur Phencyclidine Scrn Ur Amphetamines Screen U Benzodiazepines Scrn Urine Cocaine Screen U Marijuana (THC) Screen Drugs of Abuse Note Plasma/Serum Alcohol 07/08/18 07/08/18 07/08/18 03:13 03:13 03:18 WBC 13.7 H RBC 5.09 H Hgb 13.0 Hct 39.6 MCV 78 L MCH 26 L MCHC 33 RDW 16.5 H Plt Count 315 Walton % (Auto) Requirements Engineer Add Manual Diff Complete Total Counted 100 Seg Neuts % (Manual) 58.0 Band Neutrophils % 2.0 Lymphocytes % (Manual) 13.0 L Reactive Lymphs % (Man) 0 Monocytes % (Manual) 17.0 H Eosinophils % (Manual) 6.0 H Basophils % (Manual) 2.0 H Metamyelocytes % 0 Myelocytes % 0 Promyelocytes % 2.0 Blast Cells % 0 Nucleated RBC % Not Reportable Seg Neutrophils # Man 7.9 H Band Neutrophils # 0.3 Lymphocytes # (Manual) 1.8 Abs React Lymphs (Man) 0.0 Monocytes # (Manual) 2.3 H Eosinophils # (Manual) 0.8 H Basophils # (Manual) 0.3 H Metamyelocytes # 0.0 Myelocytes # 0.0 Promyelocytes # 0.3 Blast Cells # 0.0 WBC Morphology Not Reportable Hypersegmented Neuts Not Reportable Hyposegmented Neuts Not Reportable Hypogranular Neuts Not Reportable Smudge Cells Not Reportable Toxic Granulation Not Reportable Toxic Vacuolation Not Reportable Dohle Bodies Not Reportable Pelger-Huet Anomaly Not Reportable Natty Rods Not Reportable Platelet Estimate Appears normal Clumped Platelets Not Reportable Plt Clumps, EDTA Not Reportable Large Platelets Not Reportable Giant Platelets Not Reportable Platelet Satelliting Not Reportable Plt Morphology Comment Not Reportable RBC Morphology Not Reportable Dimorphic RBCs Not Reportable Polychromasia Few Hypochromasia 1+ Poikilocytosis Not Reportable Anisocytosis 1+ Microcytosis Not Reportable Macrocytosis Not Reportable Spherocytes Not Reportable Pappenheimer Bodies Not Reportable Sickle Cells Not Reportable Target Cells Not Reportable Tear Drop Cells Not Reportable Ovalocytes Few Helmet Cells Not Reportable Olvera-Spickard Bodies Not Reportable [place] Rings Not Reportable Murtaza Cells Not Reportable Bite Cells Not Reportable Crenated Cell Not Reportable Elliptocytes Not Reportable Acanthocytes (Spur) Not Reportable Rouleaux Not Reportable Hemoglobin C Crystals Not Reportable Schistocytes Not Reportable Malaria parasites Not Reportable Romario Bodies Not Reportable Hem Pathologist Commnt No Sodium Potassium Chloride Carbon Dioxide Anion Gap BUN Creatinine Estimated GFR BUN/Creatinine Ratio Glucose Calcium Total Creatine Kinase 1110 H Urine Color Urine Turbidity Urine pH Ur Specific [place] Urine Protein Urine Glucose (UA) Urine Ketones Urine Blood Urine Nitrite Urine Bilirubin Urine Urobilinogen Ur Leukocyte Esterase Urine WBC (Auto) Urine RBC (Auto) U Epithel Cells (Auto) Urine Sperm Salicylates Urine Opiates Screen Urine Methadone Screen Acetaminophen Ur Barbiturates Screen Ur Phencyclidine Scrn Ur Amphetamines Screen U Benzodiazepines Scrn Urine Cocaine Screen U Marijuana (THC) Screen Drugs of Abuse Note Plasma/Serum Alcohol < 0.01 07/08/18 07/08/18 03:50 03:50 WBC RBC Hgb Hct MCV MCH MCHC RDW Plt Count [place] % (Auto) Add Manual Diff Total Counted Seg Neuts % (Manual) Band Neutrophils % Lymphocytes % (Manual) Reactive Lymphs % (Man) Monocytes % (Manual) Eosinophils % (Manual) Basophils % (Manual) Metamyelocytes % Myelocytes % Promyelocytes % Blast Cells % Nucleated RBC % Seg Neutrophils # Man Band Neutrophils # Lymphocytes # (Manual) Abs React Lymphs (Man) Monocytes # (Manual) Eosinophils # (Manual) Basophils # (Manual) Metamyelocytes # Myelocytes # Promyelocytes # Blast Cells # WBC Morphology Hypersegmented Neuts Hyposegmented Neuts Hypogranular Neuts Smudge Cells Toxic Granulation Toxic Vacuolation Dohle Bodies Pelger-Huet Anomaly Natty Rods Platelet Estimate Clumped Platelets Plt Clumps, EDTA Large Platelets Giant Platelets Platelet Satelliting Plt Morphology Comment RBC Morphology Dimorphic RBCs Polychromasia Hypochromasia Poikilocytosis Anisocytosis Microcytosis Macrocytosis Spherocytes Pappenheimer Bodies Sickle Cells Target Cells Tear Drop Cells Ovalocytes Helmet Cells Olvera-Spickard Bodies [place] Rings Burns Cells Bite Cells Crenated Cell Elliptocytes Acanthocytes (Spur) Rouleaux Hemoglobin C Crystals Schistocytes Malaria parasites Romario Bodies Hem Pathologist Commnt Sodium Potassium Chloride Carbon Dioxide Anion Gap BUN Creatinine Estimated GFR BUN/Creatinine Ratio Glucose Calcium Total Creatine Kinase Urine Color Yellow Urine Turbidity Clear Urine pH 5.0 Ur Specific [place] 1.023 Urine Protein <15 mg/dl Urine Glucose (UA) Neg Urine Ketones Neg Urine Blood Neg Urine Nitrite Neg Urine Bilirubin Neg Urine Urobilinogen 2.0 Ur Leukocyte Esterase Tr Urine WBC (Auto) 3.0 Urine RBC (Auto) 3.0 U Epithel Cells (Auto) < 1.0 Urine Sperm Few Salicylates Urine Opiates Screen Presumptive negative Urine Methadone Screen Presumptive negative Acetaminophen Ur Barbiturates Screen Presumptive negative Ur Phencyclidine Scrn Presumptive negative Ur Amphetamines Screen Presumptive negative U Benzodiazepines Scrn Presumptive positive Urine Cocaine Screen Presumptive positive U Marijuana (THC) Screen Presumptive negative Drugs of Abuse Note Disclamer Plasma/Serum Alcohol - Medical Decision Making Differential diagnosis, including but not limited to: Depression, suicidality, polysubstance abuse Assessment and plan: 42-year-old gentleman with a complaint of depression and suicidality. Patient has been seen multiple times in this emergency department for similar symptoms. His laboratory studies in the past have been essentially unremarkable. His chronic leukocytosis is appreciated, without corroborating evidence of bacterial infection. His potassium today was hemolyzed. He's had multiple normal potassium levels and renal function tests within the past week. His elevated creatinine kinase is appreciated, does not meet the definitional criteria for rhabdomyolysis. This EKG will decrease with rest and with oral hydration which we will encourage. He will also be given 2 L of normal saline, a based on his lack of tender compartments, multiple unremarkable examinations in this department within the past week, and normal renal function, this will likely normalize on its own, and does not require a recheck. The patient makes no complaint of back pain to me today. He did endorse back pain to the nurse and to the mental health counselor, Jose Miguel Faria. Of note, I have evaluated the patient a few days ago, and had an unremarkable exam back then with the exception of alcohol intoxication, and he is noted to be walking around the emergency department without difficulty. There is no apparent medical contraindications to psychiatric admission, evaluation and consultation at this time. The crisis team was informed. Critical care attestation.: If time is entered above; I have spent that time in minutes in the direct care of this critically ill patient, excluding procedure time. ED Disposition Clinical Impression: Suicidal ideation, Alcohol abuse, Depressed Disposition: [id number] PSY HOSP/PSY UNIT Is pt being admited?: No Does the pt Need Aspirin: No Condition: Good
[2018-07-08] MEDS ORDERED: NACL 0.9% 1000 ML 2,000 ML IV ONE (08:08)
[2018-07-08] MEDS: ATIVAN PO PRN (16:37)
[2018-07-08 17:37] LABS: BUN/Creatinine Ratio 16; Blood Urea Nitrogen 14 mg/dL (9-20); Hemolysis Index 18
[2018-07-09] MEDS: ATIVAN PO PRN (03:35)
[2018-07-09] MEDS ORDERED: VISTARIL PO ONE (15:40)
--- NOTE | 2018-07-09 15:45 | Consultation ---
History of Present Illness - Reason for Consult Consult date: 07/09/18 Reason for consult: Mental Health Evaluation Requesting physician: RENETTA ROCKWELL - Chief Complaint Chief complaint: "I need help" - History of Present Psychiatric Illness 42-year-old presenting to the ER alcohol abuse, polysubstance abuse, and SI's. This patient is known to me. Today the patient is calm, but irritated during the assessment. He stated that no one is trying to help him. He was vague about what he meant about no one is willing to help him. He did state that he is homeless and have increased his alcohol consumption because he feels "down." Also, he stated that he use "drugs" to help him deal with issues. He stated that he isn't "suicidal now" but may have mentioned that "word" when he first arrived to the hospital. He denies SI/HI's and AVH's. He denies a poor appetite and a erratic sleep. Medications and Allergies Allergies Allergy/AdvReac Type Severity Reaction Status Date / Time No Known Allergies Allergy Verified 07/06/18 07:19 Home Medications Medication Instructions Recorded Confirmed Last Taken Type FLUoxetine [PROzac] 20 mg PO QDAY capsule 06/28/18 07/05/18 Unknown Rx traZODone [Desyrel] 50 mg PO QHS PRN tablet 06/28/18 07/05/18 Unknown Rx rOPINIRole [Requip] 0.25 mg PO DAILY 07/05/18 07/05/18 Unknown History Active Meds: Active Medications Acetaminophen (Tylenol) 650 mg PO Q6HR PRN PRN Reason: Pain Chlordiazepoxide HCl (Librium) 50 mg PO Q1HR PRN PRN Reason: CARLTON-Ever 8-15 Last Admin: 07/08/18 09:10 Dose: 50 mg Chlordiazepoxide HCl (Librium) 100 mg PO Q1HR PRN PRN Reason: CARLTON-Ever 16- Haloperidol Lactate (Haldol) 5 mg IM Q6HR PRN PRN Reason: Agitation Lorazepam (Ativan) 2 mg IM Q4HR PRN PRN Reason: Agitation Last Admin: 07/08/18 09:10 Dose: 2 mg Lorazepam (Ativan) 4 mg PO Q1HR PRN PRN Reason: CARLTON-Ever 16- Last Admin: 07/09/18 03:35 Dose: 4 mg Past psychiatric history - Past Medical History Past Medical History: other (Wounds to lower extremities) Past Surgical History: Other (Surgery to his lower extremities) - past Psychiatric treatment and history psychiatric treatment history: Inpatient to [facility] a few weeks ago. He would not confirm or deny a fam psy hx. - Social History Social history: other (Homeless) Mental Status Exam - Vital signs Last Vital Signs Temp 98.3 F 07/09/18 11:18 Pulse 93 H 07/09/18 11:18 Resp 18 07/09/18 11:18 BP 113/78 07/09/18 11:18 Pulse Ox 97 07/09/18 11:18 - Exam Narrative exam: MSE: Appearance: cooperative Behavior: regular eye contact Speech: regular rate and low tone Mood: irritated "down" Affect: congruent to mood Thought Process: circumstantial Thought Content: denies SI/HI's and AVH's Motor Activity: ambulatory Cognition: A/O x 3 Insight: variable Judgment: variable Results Result Diagrams: 07/08/18 03:18 07/08/18 16:06 Abnormal lab results 07/08/18 Range/Units 16:06 Total Creatine Kinase 557 H (55-170) units/L All other labs normal. Assessment and Plan Assessment and plan: Impression: MDD. Substance Use DO (cocaine). Hx of Alcohol Abuse. Today the patient is calm, but irritated during the assessment. No acute alcohol withdrawals noted. DDx: R/O Bipolar Do, R/O Substance Induced Mood DO Recommendation/Plan: Continue 1013 and reassess in 24 hours to determine proper dispo. Use Ativan only for CIWA. Start Prozac 20 mg PO daily for depression. Discussed possible suicidality/medication induced thiago with the patient reference Prozac.
[2018-07-09] MEDS ORDERED: PROzac PO SCH (17:00)
[2018-07-09 20:45] VITALS: BP 120/82
--- NOTE | 2018-07-10 14:39 | Progress Note ---
Subjective - Reason for Consult Consult date: 07/10/18 Mental Status Exam - Vital signs Last Vital Signs Temp 97.8 F 07/09/18 20:00 Pulse 101 H 07/09/18 20:00 Resp 18 07/09/18 20:00 BP 120/82 07/09/18 20:00 Pulse Ox 96 07/09/18 20:00
== END 2018-07-09 20:15 ==
LOC: ED 01:27
DX: F32.9 Major depressive disorder, single episode, unspecified (principal); M79.605 Pain in left leg; F10.129 Alcohol abuse with intoxication, unspecified; F17.200 Nicotine dependence, unspecified, uncomplicated; F14.10 Cocaine abuse, uncomplicated; F15.10 Other stimulant abuse, uncomplicated; Z98.890 Other specified postprocedural states
CPT/HCPCS: 36415; 80048; 80307; 81001; 82550; 85007; 85025; 96372; 99285; G0480; J2060; J7030; 80320; Q0177

== ENCOUNTER 2019-01-12 10:46 | Emergency (ER) | payer MEDICAID ==
[2019-01-12] MEDS ORDERED: HALDOL IM STA (10:54)
[2019-01-12] MEDS ORDERED: HALDOL ONE (10:57)
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
[2019-01-12 11:13] LABS: Hematocrit 41.5 % (35.5-45.6); Hemoglobin 13.4 gm/dl (11.8-15.2); Mean Corpuscular HGB Conc 32 % (32-34); Mean Corpuscular Volume 77 fl (84-94); Platelet Count 297 K/mm3 (140-440); Red Cell Distribution Width 15.8 % (13.2-15.2)
[2019-01-12 11:38] LABS: BUN/Creatinine Ratio 14; Blood Urea Nitrogen 10 mg/dL (9-20); Calcium 9.1 mg/dL (8.4-10.2); Hemolysis Index 19
[2019-01-12 11:50] LABS: Bilirubin,Urine NEG (Negative); Color,Urine Colorless (Yellow); Mucus,Urine FEW /HPF; Protein,Urine <15 mg/dL mg/dL (Negative); RBC,Urine < 1.0 /HPF (0.0-6.0); Urobilinogen,Urine < 2.0 mg/dL (<2.0); WBC,Urine < 1.0 /HPF (0.0-6.0)
[2019-01-12 11:57] LABS: Blood,Urine SM (Negative)
[2019-01-12 12:02] LABS: Benzodiazepines Screen,Urine PRESUMPTIVE NEGATIVE; Cannabinoid Screen,Urine PRESUMPTIVE NEGATIVE; Cocaine Screen,Urine PRESUMPTIVE NEGATIVE; Methadone Screen,Urine PRESUMPTIVE NEGATIVE; Opiate Screen,Urine PRESUMPTIVE NEGATIVE
[2019-01-12 12:27] LABS: Amphetamine Screen,Urine PRESUMPTIVE POSITIVE
--- NOTE | 2019-01-12 14:36 | Cat Scan Report ---
PROCEDURE: CT HEAD/BRAIN WO CON TECHNIQUE: A noncontrast CT of the head was performed. HISTORY: ams intox COMPARISON: None FINDINGS: There is no acute intracranial hemorrhage. There is no brain edema, mass effect or midline shift. Ventricular size is appropriate for brain volume. There is no abnormal extra-axial fluid collections. There is no skull fracture seen. The visualized paranasal sinuses are clear. IMPRESSION: There is no acute intracranial abnormality seen. This document is electronically signed by Marisol Moreland MD., January 12 2019 02:34:22 PM ET
--- NOTE | 2019-01-12 14:40 | Cat Scan Report ---
PROCEDURE: CT CERVICAL SPINE WO CON TECHNIQUE: CT of the cervical spine performed. Axial images and coronal and sagittal reformatted imag es were obtained. HISTORY: intox COMPARISON: None FINDINGS: There is no acute fracture seen. Vertebral heights and alignment are maintained. There is a variant articulation between the left transverse processes of C4 and C5. There is some deg enerative change at this articulation. There is mild disc space narrowing at C4-5. There is moderate disc space narrowing at C6-7. Uncoverte bral spurring at C6-7 causes mild neural foraminal narrowing. There is no significant spinal stenosis seen. IMPRESSION: There is no acute cervical spine fracture or posttraumatic subluxation seen. Degenerative findings as above. This document is electronically signed by Marisol Moreland MD., January 12 2019 02:38:23 PM ET
[2019-01-12 14:59] VITALS: BP 106/59
== END 2019-01-12 15:42 | disposition home or self-care (01) ==
LOC: ED 10:46
DX: R20.0 Anesthesia of skin (principal); F17.200 Nicotine dependence, unspecified, uncomplicated; F14.90 Cocaine use, unspecified, uncomplicated; F10.120 Alcohol abuse with intoxication, uncomplicated
CPT/HCPCS: 36415; 70450; 72125; 80048; 80307; 81001; 82550; 83735; 85027; 93005; 93010; 96372; 99285; G0480; J1630; 80320

== ENCOUNTER 2019-05-09 15:57 | Emergency (ER) | payer MEDICAID ==
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
[2019-05-09 16:35] LABS: Basophils # (Auto) 0.1 K/mm3 (0.0-0.1); Basophils % (Auto) 0.5 % (0.0-1.8); Eosinophils % (Auto) 0.3 % (0.0-4.3); Hemoglobin 13.2 gm/dl (11.8-15.2); Lymphocytes # (Auto) 1.4 K/mm3 (1.2-5.4); Lymphocytes % (Auto) 10.5 % (13.4-35.0); Mean Corpuscular HGB Conc 32 % (32-34); Mean Corpuscular Volume 78 fl (84-94); Monocytes # (Auto) 1.6 K/mm3 (0.0-0.8); Monocytes % (Auto) 11.6 % (0.0-7.3); Platelet Count 273 K/mm3 (140-440); Red Blood Count 5.24 M/mm3 (3.65-5.03); Red Cell Distribution Width 17.2 % (13.2-15.2)
--- NOTE | 2019-05-09 16:44 | XRay Report ---
EXAM: XR CHEST 1V AP HISTORY: Chest Pain TECHNIQUE: PA chest x-ray dated 05/09/2019 at 4:22 PM. COMPARISON: None available. FINDINGS: The heart size and mediastinum are within normal limits. The lung powers and costophrenic angles are clear. There is no acute parenchymal infiltrate, pleural effusion, or pneumothorax seen. The visua lized bony structures are within normal limits. IMPRESSION: 1. No evidence for acute cardiopulmonary disease seen. This document is electronically signed by Salazar Thomson MD., May 09 2019 04:42:28 PM ET
[2019-05-09 17:04] LABS: BUN/Creatinine Ratio 9; Blood Urea Nitrogen 8 mg/dL (9-20); Calcium 9.7 mg/dL (8.4-10.2); Hemolysis Index 13
[2019-05-09 17:27] LABS: Benzodiazepines Screen,Urine PRESUMPTIVE NEGATIVE; Cannabinoid Screen,Urine PRESUMPTIVE NEGATIVE; Cocaine Screen,Urine PRESUMPTIVE NEGATIVE; Methadone Screen,Urine PRESUMPTIVE NEGATIVE; Opiate Screen,Urine PRESUMPTIVE NEGATIVE
[2019-05-09 17:42] LABS: Amphetamine Screen,Urine PRESUMPTIVE POSITIVE
[2019-05-09] MEDS ORDERED: NORCO 5/325 PO ONE (21:14)
[2019-05-09] MEDS ORDERED: ASPIRIN PO ONE (21:15)
[2019-05-09 21:24] VITALS: BP 140/83
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
[2019-05-09] MEDS ORDERED: PEPCID PO ONE (23:40)
[2019-05-09] MEDS ORDERED: ALUM-MAG HYDROX-SIMETH 200-200-20MG/5ML PO ONE (23:41)
[2019-05-09] MEDS ORDERED: LIDOCAINE VISCOUS 2% PO ONE (23:41)
== END 2019-05-10 00:16 | disposition home or self-care (01) ==
LOC: ED 15:57
DX: R07.89 Other chest pain (principal); F17.200 Nicotine dependence, unspecified, uncomplicated; Z98.890 Other specified postprocedural states; Z79.899 Other long term (current) drug therapy
CPT/HCPCS: 36415; 71045; 80048; 80307; 84484; 85025; 93005; 93010

== ENCOUNTER 2019-05-12 06:45 | Emergency (ER) | payer MEDICAID ==
[2019-05-12] MEDS ORDERED: ASPIRIN PO ONE (07:14)
[2019-05-12 07:38] LABS: Basophils # (Auto) 0.1 K/mm3 (0.0-0.1); Basophils % (Auto) 0.4 % (0.0-1.8); Eosinophils # (Auto) 0.1 K/mm3 (0.0-0.4); Eosinophils % (Auto) 0.6 % (0.0-4.3); Hematocrit 39.4 % (35.5-45.6); Hemoglobin 12.9 gm/dl (11.8-15.2); Lymphocytes # (Auto) 1.2 K/mm3 (1.2-5.4); Lymphocytes % (Auto) 8.8 % (13.4-35.0); Mean Corpuscular HGB Conc 33 % (32-34); Mean Corpuscular Volume 77 fl (84-94); Monocytes # (Auto) 1.5 K/mm3 (0.0-0.8); Monocytes % (Auto) 11.4 % (0.0-7.3); Platelet Count 274 K/mm3 (140-440); Red Cell Distribution Width 16.4 % (13.2-15.2)
[2019-05-12 07:42] LABS: Benzodiazepines Screen,Urine PRESUMPTIVE NEGATIVE; Cannabinoid Screen,Urine PRESUMPTIVE NEGATIVE; Methadone Screen,Urine PRESUMPTIVE NEGATIVE; Opiate Screen,Urine PRESUMPTIVE NEGATIVE
[2019-05-12 07:57] LABS: BUN/Creatinine Ratio 11; Blood Urea Nitrogen 10 mg/dL (9-20); Calcium 9.7 mg/dL (8.4-10.2); Hemolysis Index 15
[2019-05-12 08:10] LABS: Amphetamine Screen,Urine PRESUMPTIVE POSITIVE; Cocaine Screen,Urine PRESUMPTIVE POSITIVE
[2019-05-12] MEDS ORDERED: NACL 0.9% 1000 ML 1,000 ML IV ONE (08:55)
[2019-05-12] MEDS ORDERED: ATIVAN IV ONE (08:55)
[2019-05-12] MEDS ORDERED: ZOFRAN IV ONE (08:55)
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
[2019-05-12 10:33] LABS: Bilirubin,Urine NEG (Negative); Blood,Urine NEG (Negative); Color,Urine Colorless (Yellow); Protein,Urine <15 mg/dL mg/dL (Negative); Urobilinogen,Urine < 2.0 mg/dL (<2.0)
[2019-05-12 10:45] LABS: WBC,Urine < 1.0 /HPF (0.0-6.0)
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
--- NOTE | 2019-05-12 12:13 | XRay Report ---
SINGLE VIEW CXR HISTORY: Chest pain COMPARISON: 05/09/2019 FINDINGS: Cardiomediastinal silhouette: Normal cardiac size. Normal mediastinal contours. Lungs: Normal expansion. Normal lung aeration. No pleural effusions. No pneumothorax. Pulmonary vascularity: Normal. Support hardware: None. Additional findings: None. IMPRESSION: 1. No acute cardiopulmonary process. Signer Name: Darnell Brown MD Signed: 05/12/2019 10:12 AM Workstation Name: [id number]
--- NOTE | 2019-05-12 13:51 | Consultation ---
History of Present Illness - Reason for Consult Consult date: 05/12/19 Reason for consult: Mental Health Evaluation Requesting physician: CANDY VALENTINO - Chief Complaint Chief complaint: "I prefer to talk tomorrow" - History of Present Psychiatric Illness 43 y.o. AA male who presented to the ER for chest pain. Psychiatry was consulted to see the patient for possible drug induced psychosis. Today the patient was calm, but asked to be seen tomorrow. A psy assessment could not be completed. No gestures of Si/HI's. Medications and Allergies Allergies Allergy/AdvReac Type Severity Reaction Status Date / Time No Known Allergies Allergy Verified 05/09/19 15:58 Home Medications Medication Instructions Recorded Confirmed Last Taken Type FLUoxetine [PROzac] 20 mg PO QDAY capsule 06/28/18 07/05/18 Unknown Rx traZODone [Desyrel] 50 mg PO QHS PRN tablet 06/28/18 07/05/18 Unknown Rx rOPINIRole [Requip] 0.25 mg PO DAILY 07/05/18 07/05/18 Unknown History Famotidine [Pepcid] 20 mg PO BID #60 tablet 05/09/19 Unknown Rx Ibuprofen [Motrin 800 MG tab] 800 mg PO Q8HR PRN #30 tablet 05/09/19 Unknown Rx Past psychiatric history - Past Medical History Past Medical History: other (Unable to obtain ) Past Surgical History: Other (Unabel to obtain ) - past Psychiatric treatment and history psychiatric treatment history: Unable to obtain a psy hx and a fam psy hx. - Social History Social history: other (Unable to obtain ) Mental Status Exam - Vital signs Last Vital Signs Temp 98.4 F 05/12/19 07:08 Pulse 86 05/12/19 10:16 Resp 18 05/12/19 10:16 BP 122/82 05/12/19 10:16 Pulse Ox 95 05/12/19 10:16 - Exam Narrative exam: Unable to complete the MSE because the patient asked to be seen in tomorrow, Results Result Diagrams: 05/12/19 07:20 05/12/19 07:20 Abnormal lab results 05/12/19 05/12/19 05/12/19 Range/Units 07:20 07:20 10:30 WBC 13.1 H (4.5-11.0) K/mm3 RBC 5.10 H (3.65-5.03) M/mm3 MCV 77 L (84-94) fl MCH 25 L (28-32) pg RDW 16.4 H (13.2-15.2) % Lymph % (Auto) 8.8 L (13.4-35.0) % [place] % (Auto) 11.4 H (0.0-7.3) % [place] # 1.5 H (0.0-0.8) K/mm3 Seg Neutrophils % 78.8 H (40.0-70.0) % Seg Neutrophils # 10.3 H (1.8-7.7) K/mm3 Glucose 105 H (75-100) mg/dL Ur Specific [place] (1.003-1.030) Salicylates < 0.3 L (2.8-20.0) mg/dL Acetaminophen (10.0-30.0) ug/mL 05/12/19 05/12/19 Range/Units 10:30 Unknown WBC (4.5-11.0) K/mm3 RBC (3.65-5.03) M/mm3 MCV (84-94) fl MCH (28-32) pg RDW (13.2-15.2) % Lymph % (Auto) (13.4-35.0) % [place] % (Auto) (0.0-7.3) % [place] # (0.0-0.8) K/mm3 Seg Neutrophils % (40.0-70.0) % Seg Neutrophils # (1.8-7.7) K/mm3 Glucose (75-100) mg/dL Ur Specific [place] 1.001 L (1.003-1.030) Salicylates (2.8-20.0) mg/dL Acetaminophen < 5.0 L (10.0-30.0) ug/mL All other labs normal. Assessment and Plan Assessment and plan: Impression: Today the patient is calm, but asked to be seen tomorrow. Recommendation/Plan: Continue 1013 and attempt to see the patient in 24 [address] staff [address] Dr Kailey Zeng.
[2019-05-12] MEDS ORDERED: TYLENOL PO PRN (18:54)
[2019-05-12] MEDS ORDERED: IBUPROFEN PO PRN (18:55)
[2019-05-12] MEDS ORDERED: ATIVAN IM PRN (19:25)
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
[2019-05-13 14:24] VITALS: BP 109/80
== END 2019-05-13 14:40 | disposition home or self-care (01) ==
LOC: ED 06:45
DX: F14.129 Cocaine abuse with intoxication, unspecified (principal); F15.129 Other stimulant abuse with intoxication, unspecified; F32.9 Major depressive disorder, single episode, unspecified; F12.10 Cannabis abuse, uncomplicated; F10.10 Alcohol abuse, uncomplicated; F43.10 Post-traumatic stress disorder, unspecified; F17.200 Nicotine dependence, unspecified, uncomplicated; R07.89 Other chest pain; M79.662 Pain in left lower leg; G89.29 Other chronic pain; Z79.1 Long term (current) use of non-steroidal anti-inflammatories (NSAID); Z79.899 Other long term (current) drug therapy
CPT/HCPCS: 36415; 71045; 73590; 80048; 80307; 81001; 82550; 84484; 85025; 93005; 93010; 96372; 96374; 96375; 99285; G0480; J2060; J2405; J7030; 80320

== ENCOUNTER 2019-05-20 20:44 | Emergency (ER) | payer MEDICAID ==
[2019-05-20 21:41] VITALS: BP 131/97
--- NOTE | 2019-05-20 21:42 | Event Note ---
ED Screening Note Date of service: 05/20/19 (n) ED Screening Note: 43 y o male presents to ED cc of left lower leg pain and swelling states that he had pus,blood drainage from the area today denies injury This initial assessment/diagnostic orders/clinical plan/treatment(s) is/are subject to change based on patients health status, clinical progression and re- assessment by fellow clinical providers in the ED. Further treatment and workup at subsequent clinical providers discretion. Patient/guardian urged not to elope from the ED as their condition may be serious if not clinically assessed and managed. Initial orders include: ACC eval
[2019-05-21] MEDS ORDERED: TORADOL IV STA (01:03)
[2019-05-21] MEDS ORDERED: ZOFRAN IV STA (01:03)
--- NOTE | 2019-05-21 01:03 | Emergency Department Report ---
<WEI LIU - Last Filed: 05/21/19 06:13> ED General Adult HPI - General Chief complaint: Extremity Injury, Lower Stated complaint: LT KNEE PAIN Time Seen by Provider: 05/20/19 21:38 - Related Data Home Medications Medication Instructions Recorded Confirmed Last Taken rOPINIRole [Requip] 0.25 mg PO DAILY 07/05/18 05/13/19 Unknown Previous Rx's Medication Instructions Recorded Last Taken Type FLUoxetine [PROzac] 20 mg PO QDAY capsule 06/28/18 Unknown Rx traZODone [Desyrel] 50 mg PO QHS PRN tablet 06/28/18 Unknown Rx Famotidine [Pepcid] 20 mg PO BID #60 tablet 05/09/19 Unknown Rx Ibuprofen [Motrin 800 MG tab] 800 mg PO Q8HR PRN #30 tablet 05/09/19 Unknown Rx Sulfamethoxazole/Trimethoprim 1 each PO BID #14 tablet 05/13/19 Unknown Rx [Bactrim DS TAB] Allergies Allergy/AdvReac Type Severity Reaction Status Date / Time No Known Allergies Allergy Verified 05/09/19 15:58 ED Past Medical Hx - Medications Home Medications: Home Medications Medication Instructions Recorded Confirmed Last Taken Type FLUoxetine [PROzac] 20 mg PO QDAY capsule 06/28/18 05/13/19 Unknown Rx traZODone [Desyrel] 50 mg PO QHS PRN tablet 06/28/18 05/13/19 Unknown Rx rOPINIRole [Requip] 0.25 mg PO DAILY 07/05/18 05/13/19 Unknown History Famotidine [Pepcid] 20 mg PO BID #60 tablet 05/09/19 05/13/19 Unknown Rx Ibuprofen [Motrin 800 MG tab] 800 mg PO Q8HR PRN #30 tablet 05/09/19 05/13/19 Unknown Rx Sulfamethoxazole/Trimethoprim 1 each PO BID #14 tablet 05/13/19 Unknown Rx [Bactrim DS TAB] ED Medical Decision Making - Lab Data Result diagrams: 05/21/19 01:18 05/21/19 01:18 ED Disposition Clinical Impression: Lower extremity pain, left, Depression, Medical clearance for psychiatric admission Disposition: - TO HOME OR SELFCARE Condition: Stable Referrals: PRIMARY CARE,MD [Primary Care Provider] - 3-5 Days Time of Disposition: 06:13 Print Language: CROATIAN <MICHELE VARGAS - Last Filed: 06/05/19 23:55> ED General Adult HPI - General Source: patient Mode of arrival: Ambulatory Limitations: No Limitations - History of Present Illness Initial comments: 43-year-old Italian male with chronic recurrent left lower extremity swelling. Pain is issue, cellulitis was fluctuating since June of last year. He states that it has not worsened over the last 2 months with occasional drainage of yellowish discharge from a wound on the left. She sustained several years ago secondary to she is distended with his scientific programmer analyst today who escorted him to wounds. As he was due to see head men's tennis coach and help with his drinking, drug issue. They agreed to enroll into the therapeutic program and wanted him to get his leg evaluated except Location: lower extremity Radiation: extremity Consistency: constant Improves with: none, immobilization Associated Symptoms: denies other symptoms. denies: chest pain, cough, diaphoresis, malaise, nausea/vomiting, shortness of breath, syncope, weakness ED Review of Systems ROS: Stated complaint: LT KNEE PAIN Other details as noted in HPI Comment: All other systems reviewed and negative ED Past Medical Hx - Past Medical History Previous Medical History?: No Hx Hypertension: No Hx Heart Attack/AMI: No Hx Congestive Heart Failure: No Hx Diabetes: No Hx Deep Vein Thrombosis: No Hx Asthma: No Hx COPD: No Additional medical history: Chronic Lower leg wound PTSD - Surgical History Past Surgical History?: Yes Hx Coronary Stent: No Hx Pacemaker: No Hx Internal Defibrillator: No Hx Appendectomy: No Additional Surgical History: Left leg surgery, "about 12 sxs since 2013" - Social History Smoking Status: Current Every Day Smoker Substance Use Type: Alcohol, Cocaine, Marijuana ED Physical Exam - General Limitations: No Limitations General appearance: alert, in no apparent distress - Head Head exam: Present: atraumatic, normocephalic - Eye Eye exam: Present: normal appearance, PERRL, EOMI Pupils: Present: normal accommodation - ENT ENT exam: Present: normal exam, mucous membranes moist - Neck Neck exam: Present: normal inspection - Respiratory Respiratory exam: Present: normal lung sounds bilaterally. Absent: respiratory distress - Cardiovascular Cardiovascular Exam: Present: regular rate, normal rhythm. Absent: systolic murmur, diastolic murmur, rubs, gallop - GI/Abdominal GI/Abdominal exam: Present: soft, normal bowel sounds - Rectal Rectal exam: Present: deferred - Extremities Exam Extremities exam: Present: normal inspection - Expanded Lower Extremity Exam Left Lower Leg exam: Present: tenderness, swelling (social swelling noted to the left lower extremity with some old wounds. No no active discharge. No sick no cellulitis noted. Obvious chronic deformity to the leg secondary to history of April. Pulses 2+) - Back Exam Back exam: Present: normal inspection - Neurological Exam Neurological exam: Present: alert, oriented X3 - Psychiatric Psychiatric exam: Present: normal affect, normal mood - Skin Skin exam: Present: warm, dry, intact, normal color. Absent: rash ED Course Vital Signs 05/20/19 05/21/19 21:36 06:26 Temperature 98.1 F Pulse Rate 64 64 Respiratory 18 16 Rate Blood Pressure 131/97 O2 Sat by Pulse 99 96 Oximetry ED Medical Decision Making - Lab Data Result diagrams: 05/21/19 01:18 05/21/19 01:18 - Medical Decision Making 43-year-old male with a chronic history of substance abuse, seeking admission to [facility] for drug and alcohol program. No limiting factor to prevent his admission. There is no active cellulitis. White count is also normal Critical care attestation.: If time is entered above; I have spent that time in minutes in the direct care of this critically ill patient, excluding procedure time. ED Disposition Is pt being admited?: No Does the pt Need Aspirin: No
[2019-05-21 01:31] LABS: Basophils # (Auto) 0.1 K/mm3 (0.0-0.1); Basophils % (Auto) 1.3 % (0.0-1.8); Eosinophils # (Auto) 0.4 K/mm3 (0.0-0.4); Eosinophils % (Auto) 5.1 % (0.0-4.3); Hematocrit 39.9 % (35.5-45.6); Hemoglobin 13.1 gm/dl (11.8-15.2); Lymphocytes # (Auto) 2.2 K/mm3 (1.2-5.4); Mean Corpuscular HGB Conc 33 % (32-34); Mean Corpuscular Volume 78 fl (84-94); Monocytes # (Auto) 1.1 K/mm3 (0.0-0.8); Monocytes % (Auto) 12.2 % (0.0-7.3); Platelet Count 321 K/mm3 (140-440); Red Blood Count 5.16 M/mm3 (3.65-5.03); Red Cell Distribution Width 16.8 % (13.2-15.2)
[2019-05-21 01:50] LABS: BUN/Creatinine Ratio 13; Blood Urea Nitrogen 13 mg/dL (9-20); Calcium 9.5 mg/dL (8.4-10.2); Hemolysis Index 9
[2019-05-21 05:51] LABS: Bilirubin,Urine NEG (Negative); Blood,Urine NEG (Negative); Color,Urine Yellow (Yellow); Mucus,Urine 2+ /HPF; Protein,Urine <15 mg/dL mg/dL (Negative)
[2019-05-21 06:13] LABS: Amphetamine Screen,Urine PRESUMPTIVE NEGATIVE; Benzodiazepines Screen,Urine PRESUMPTIVE NEGATIVE; Methadone Screen,Urine PRESUMPTIVE NEGATIVE; Opiate Screen,Urine PRESUMPTIVE NEGATIVE
[2019-05-21 06:25] LABS: Cannabinoid Screen,Urine PRESUMPTIVE POSITIVE; Cocaine Screen,Urine PRESUMPTIVE POSITIVE
== END 2019-05-21 06:26 | disposition home or self-care (01) ==
LOC: ED 20:44
DX: S81.802D Unspecified open wound, left lower leg, subsequent encounter (principal); M25.562 Pain in left knee; F43.10 Post-traumatic stress disorder, unspecified; F17.200 Nicotine dependence, unspecified, uncomplicated; F12.10 Cannabis abuse, uncomplicated; F14.10 Cocaine abuse, uncomplicated; Z79.899 Other long term (current) drug therapy; Z79.1 Long term (current) use of non-steroidal anti-inflammatories (NSAID); W34.09XD Accidental discharge from other specified firearms, subsequent encounter
CPT/HCPCS: 36415; 80048; 80307; 81001; 85025; 96374; 96375; 99284; G0480; J1885; J2405; 80320

== ENCOUNTER 2019-10-17 19:30 | Emergency (ER) | payer MEDICAID ==
[2019-10-17] MEDS ORDERED: ASPIRIN 325 MG TAB PO ONE (20:27)
[2019-10-17 20:54] LABS: Basophils # (Auto) 0.2 K/mm3 (0.0-0.1); Basophils % (Auto) 1.3 % (0.0-1.8); Eosinophils % (Auto) 0.2 % (0.0-4.3); Hematocrit 43.4 % (35.5-45.6); Hemoglobin 13.9 gm/dl (11.8-15.2); Lymphocytes # (Auto) 1.5 K/mm3 (1.2-5.4); Lymphocytes % (Auto) 12.9 % (13.4-35.0); Mean Corpuscular HGB Conc 32 % (32-34); Mean Corpuscular Volume 77 fl (84-94); Monocytes % (Auto) 8.5 % (0.0-7.3); Platelet Count 303 K/mm3 (140-440); Red Blood Count 5.66 M/mm3 (3.65-5.03); Red Cell Distribution Width 17.1 % (13.2-15.2)
[2019-10-17 21:16] LABS: BUN/Creatinine Ratio 17; Blood Urea Nitrogen 15 mg/dL (9-20); Calcium 9.3 mg/dL (8.4-10.2); Hemolysis Index 13
--- NOTE | 2019-10-17 21:39 | XRay Report ---
CHEST 1 VIEW INDICATION: Chest Pain. COMPARISON: 05/12/2019 FINDINGS: Support devices: None. Heart: Within normal limits. Lungs/Pleura: No acute air space or interstitial disease. Additional findings: None. IMPRESSION: 1. No acute findings. Signer Name: Bryce Abreu MD Signed: 10/17/2019 9:34 PM Workstation Name: [id number]
--- NOTE | 2019-10-17 23:15 | Emergency Department Report ---
ED Chest Pain HPI - General Chief Complaint: Chest Pain Stated Complaint: CHEST PAIN Time Seen by Provider: 10/17/19 21:12 Source: patient Mode of arrival: Ambulatory Limitations: No Limitations - History of Present Illness Initial Comments: pt is a 43 y/o aam with hx of ptsd LLE orif, who presents for chest pain 4/10 left lateral chest wall, patient denies shortness of breath no nausea vomiting or diaphoresis and no back pain. Pain is exacerbated by movement and deep breathing pain is relieved by nothing tried, patient states occasionally, last e edith is today. there is no hx of MN MD Complaint: chest pain Onset/Timin -: days(s) Onset: awoke with symptoms Pain Location: left chest Pain Radiation: none Severity: moderate Severity scale (0 -10): 4 Quality: aching Consistency: constant Improves With: nothing Worsens With: exertion, palpation, movement re: denies: nausea, vomting, diaphoresis, dyspnea, sense of impending doom Other Symptoms: cough Treatments Prior to Arrival: none - Related Data Home Medications Medication Instructions Recorded Confirmed Last Taken rOPINIRole [Requip] 0.25 mg PO DAILY 07/05/18 05/13/19 Unknown Previous Rx's Medication Instructions Recorded Last Taken Type FLUoxetine [PROzac] 20 mg PO QDAY capsule 06/28/18 Unknown Rx traZODone [Desyrel] 50 mg PO QHS PRN tablet 06/28/18 Unknown Rx Famotidine [Pepcid] 20 mg PO BID #60 tablet 05/09/19 Unknown Rx Ibuprofen [Motrin 800 MG tab] 800 mg PO Q8HR PRN #30 tablet 05/09/19 Unknown Rx Sulfamethoxazole/Trimethoprim 1 each PO BID #14 tablet 05/13/19 Unknown Rx [Bactrim DS TAB] Naproxen 500 mg PO BID PRN #30 tablet 10/18/19 Unknown Rx Allergies Allergy/AdvReac Type Severity Reaction Status Date / Time No Known Allergies Allergy Verified 05/09/19 15:58 Heart Score - HEART Score History: Slightly suspicious EKG: Normal Age: < 45 Risk factors: 1-2 risk factors Troponin: < normal limit HEART Score: 1 ED Review of Systems ROS: Stated complaint: CHEST PAIN Other details as noted in HPI Constitutional: denies: chills, fever Eyes: denies: eye pain, eye discharge, vision change ENT: denies: ear pain, throat pain Respiratory: cough. denies: shortness of breath, SOB with exertion, wheezing Cardiovascular: chest pain. denies: palpitations, dyspnea on exertion, syncope, paroxysmal nocturnal dyspnea Endocrine: no symptoms reported Gastrointestinal: denies: abdominal pain, nausea, vomiting, diarrhea, constipation, melena Genitourinary: denies: urgency, dysuria, frequency, hematuria Musculoskeletal: other (LLE pain chronic ). denies: back pain, joint swelling, arthralgia Skin: denies: rash, lesions Neurological: denies: headache, weakness, numbness, paresthesias, confusion, vertigo Psychiatric: denies: anxiety, depression Hematological/Lymphatic: denies: easy bleeding, easy bruising ED Past Medical Hx - Past Medical History Previous Medical History?: Yes Hx Hypertension: No Hx Heart Attack/AMI: No Hx Congestive Heart Failure: No Hx Diabetes: No Hx Deep Vein Thrombosis: No Hx Asthma: No Hx COPD: No Additional medical history: Chronic Lower leg wound PTSD, Substance Abuse, - Surgical History Past Surgical History?: Yes Hx Coronary Stent: No Hx Pacemaker: No Hx Internal Defibrillator: No Hx Appendectomy: No Additional Surgical History: Left leg surgery, "about 12 sxs since 2013" - Social History Smoking Status: Current Every Day Smoker Substance Use Type: Cocaine, Marijuana - Medications Home Medications: Home Medications Medication Instructions Recorded Confirmed Last Taken Type FLUoxetine [PROzac] 20 mg PO QDAY capsule 06/28/18 05/13/19 Unknown Rx traZODone [Desyrel] 50 mg PO QHS PRN tablet 06/28/18 05/13/19 Unknown Rx rOPINIRole [Requip] 0.25 mg PO DAILY 07/05/18 05/13/19 Unknown History Famotidine [Pepcid] 20 mg PO BID #60 tablet 05/09/19 05/13/19 Unknown Rx Ibuprofen [Motrin 800 MG tab] 800 mg PO Q8HR PRN #30 tablet 05/09/19 05/13/19 Unknown Rx Sulfamethoxazole/Trimethoprim 1 each PO BID #14 tablet 05/13/19 Unknown Rx [Bactrim DS TAB] Naproxen 500 mg PO BID PRN #30 tablet 10/18/19 Unknown Rx ED Physical Exam - General Limitations: No Limitations General appearance: alert, in no apparent distress - Head Head exam: Present: atraumatic, normocephalic - Eye Eye exam: Present: normal appearance, PERRL, EOMI Pupils: Present: normal accommodation - ENT ENT exam: Present: normal orophraynx, mucous membranes moist - Neck Neck exam: Present: normal inspection, full ROM. Absent: tenderness, lymphadenopathy - Respiratory Respiratory exam: Present: normal lung sounds bilaterally, chest wall tenderness (LL chest wall pain ). Absent: respiratory distress, wheezes, rales, rhonchi, s tridor - Cardiovascular Cardiovascular Exam: Present: regular rate, normal rhythm, normal heart sounds. Absent: systolic murmur, diastolic murmur, rubs, gallop - GI/Abdominal GI/Abdominal exam: Present: soft, normal bowel sounds. Absent: distended, tenderness, guarding, rebound, rigid, bruit, hernia - Rectal Rectal exam: Present: deferred - Extremities Exam Extremities exam: Present: normal inspection, full ROM, normal capillary refill. Absent: tenderness, pedal edema - Back Exam Back exam: Present: normal inspection, full ROM, muscle spasm. Absent: tenderness, CVA tenderness (R), CVA tenderness (L), paraspinal tenderness, vertebral tenderness, rash noted - Neurological Exam Neurological exam: Present: alert, oriented X3, CN II-XII intact, normal gait, reflexes normal. Absent: motor sensory deficit - Psychiatric Psychiatric exam: Present: normal affect, normal mood - Skin Skin exam: Present: warm, dry, intact, normal color. Absent: rash ED Course Vital Signs 10/17/19 10/17/19 10/17/19 19:37 21:25 21:30 Temperature 98.7 F Pulse Rate 119 H 97 H 95 H Respiratory 20 20 21 Rate Blood Pressure 155/83 123/84 O2 Sat by Pulse 97 97 97 Oximetry 10/17/19 10/17/19 10/17/19 21:45 22:00 22:15 Temperature Pulse Rate 89 92 H 88 Respiratory 21 16 17 Rate Blood Pressure 119/82 118/83 130/80 O2 Sat by Pulse 98 99 97 Oximetry 10/17/19 10/17/19 10/17/19 22:30 22:45 23:00 Temperature Pulse Rate 88 91 H 93 H Respiratory 20 14 16 Rate Blood Pressure 110/78 120/79 116/78 O2 Sat by Pulse 98 98 98 Oximetry 10/17/19 10/17/19 23:15 23:30 Temperature Pulse Rate 108 H 81 Respiratory 18 18 Rate Blood Pressure 113/78 123/80 O2 Sat by Pulse 97 97 Oximetry TONY score - Tony Score Age > 65: (0) No Aspirin use within the Past 7 Days: (0) No 3 or more CAD Risk Factors: (0) No 2 or more Angina events in past 24 hrs: (0) No Known CAD with more than 50% Stenosis: (0) No Elevated Cardiac Markers: (0) No ST Deviation Greater than 0.5mm: (0) No TONY Score: 0 ED Medical Decision Making - Lab Data Result diagrams: 10/17/19 20:41 10/17/19 20:41 Labs 10/17/19 10/17/19 10/17/19 20:41 20:41 23:16 WBC 11.9 H RBC 5.66 H Hgb 13.9 Hct 43.4 MCV 77 L MCH 25 L MCHC 32 RDW 17.1 H Plt Count 303 Lymph % (Auto) 12.9 L [place] % (Auto) 8.5 H Eos % (Auto) 0.2 Baso % (Auto) 1.3 Lymph # 1.5 [place] # 1.0 H Eos # 0.0 Baso # 0.2 H Seg Neutrophils % 77.1 H Seg Neutrophils # 9.2 H Sodium 136 L Potassium 4.4 Chloride 99.9 Carbon Dioxide 20 L Anion Gap 21 BUN 15 Creatinine 0.9 Estimated GFR > 60 BUN/Creatinine Ratio 17 Glucose 84 Calcium 9.3 Troponin T < 0.010 < 0.010 - EKG Data EKG shows normal: sinus rhythm, axis, intervals, QRS complexes, ST-T waves Rate: normal - EKG Data Interpretation: normal EKG (ekg interp by ed attending NSR no ST elevated mi, ), nonspecific ST-T wave petar - Radiology Data Radiology results: report reviewed, image reviewed Normal CXR no infiltrates no opacities. - Medical Decision Making heart score is 0, CXR : clear, pain is improved, hr improved plan: dc to home with rx for naproxen prn, follow up with pcp in 2=3 days, pt verbaized agreem ent and understanding of discharge plan, pt dc' in stabe condition at this, time , pt will follow up with "[facility] in 2- 3 day for follow up and possible cardiac evaluation Critical care attestation.: If time is entered above; I have spent that time in minutes in the direct care of this critically ill patient, excluding procedure time. ED Disposition Clinical Impression: Chest pain Qualifiers: Chest pain type: chest pain on breathing Qualified Code(s): R07.1 - Chest pain on breathing; R07.81 - Pleurodynia Disposition: TO HOME OR SELFCARE Is pt being admited?: No Does the pt Need Aspirin: No Condition: Stable Instructions: Chest Pain (ED) Additional Instructions: follow up with [facility] as directed in instruction sheet and per our discussion Prescriptions: Naproxen 500 mg PO BID PRN #30 tablet PRN Reason: pain Referrals: LANNY SPAULDING MD [Primary Care Provider] - 3-5 Days Forms: Work/School Release Form(ED) Time of Disposition: 00:48
[2019-10-18 01:21] VITALS: BP 115/65
== END 2019-10-18 01:21 | disposition home or self-care (01) ==
LOC: ED 19:30
DX: R07.89 Other chest pain (principal); R06.02 Shortness of breath; F19.10 Other psychoactive substance abuse, uncomplicated; F17.200 Nicotine dependence, unspecified, uncomplicated; F12.10 Cannabis abuse, uncomplicated; F14.10 Cocaine abuse, uncomplicated; Z98.890 Other specified postprocedural states; Z79.1 Long term (current) use of non-steroidal anti-inflammatories (NSAID); Z79.899 Other long term (current) drug therapy
CPT/HCPCS: 36415; 71045; 80048; 84484; 85025; 93005; 93010

== ENCOUNTER 2019-10-28 06:34 | Emergency (ER) | payer MEDICAID ==
[2019-10-28 07:20] VITALS: BP 139/80
--- NOTE | 2019-10-28 07:58 | XRay Report ---
CHEST 2 VIEWS INDICATION / CLINICAL INFORMATION: Chest Pain. COMPARISON: 10/17/2019 FINDINGS: SUPPORT DEVICES: None. HEART / MEDIASTINUM: No significant abnormality. LUNGS / PLEURA: No significant pulmonary or pleural abnormality. No pneumothorax. ADDITIONAL FINDINGS: No significant additional findings. IMPRESSION: 1. No acute findings. Signer Name: Kavon Landry MD Signed: 10/28/2019 7:53 AM Workstation Name: [id number]
--- NOTE | 2019-10-28 08:29 | Emergency Department Report ---
ED Chest Pain HPI - General Chief Complaint: Chest Pain Stated Complaint: NAUSEA/VOMITING/CHEST PAIN Time Seen by Provider: 10/28/19 08:19 Source: patient Mode of arrival: Wheelchair Limitations: No Limitations - History of Present Illness Initial Comments: Patient is a 43-year-old -[place] male who states earlier this morning he drank an unknown liquid at his [facility] and started having chest pain. Patient does have a history of substance abuse and PTSD. Patient states chest discomfort was center chest and so she was nausea vomiting. No shortness of breath or exertional component. Patient states he just feels very nervous - Related Data Home Medications Medication Instructions Recorded Confirmed Last Taken rOPINIRole [Requip] 0.25 mg PO DAILY 07/05/18 05/13/19 Unknown Previous Rx's Medication Instructions Recorded Last Taken Type FLUoxetine [PROzac] 20 mg PO QDAY capsule 06/28/18 Unknown Rx traZODone [Desyrel] 50 mg PO QHS PRN tablet 06/28/18 Unknown Rx Famotidine [Pepcid] 20 mg PO BID #60 tablet 05/09/19 Unknown Rx Ibuprofen [Motrin 800 MG tab] 800 mg PO Q8HR PRN #30 tablet 05/09/19 Unknown Rx Sulfamethoxazole/Trimethoprim 1 each PO BID #14 tablet 05/13/19 Unknown Rx [Bactrim DS TAB] Naproxen 500 mg PO BID PRN #30 tablet 10/18/19 Unknown Rx Sulfamethoxazole/Trimethoprim 1 each PO BID 10 Days #20 tablet 10/18/19 Unknown Rx [Bactrim DS TAB] Allergies Allergy/AdvReac Type Severity Reaction Status Date / Time No Known Allergies Allergy Verified 05/09/19 15:58 Heart Score - HEART Score History: Slightly suspicious EKG: Normal Age: < 45 Risk factors: No known risk factors Troponin: < normal limit HEART Score: 0 ED Review of Systems ROS: Stated complaint: NAUSEA/VOMITING/CHEST PAIN Other details as noted in HPI Comment: All other systems reviewed and negative ED Past Medical Hx - Past Medical History Previous Medical History?: No Hx Hypertension: No Hx Heart Attack/AMI: No Hx Congestive Heart Failure: No Hx Diabetes: No Hx Deep Vein Thrombosis: No Hx Asthma: No Hx COPD: No Additional medical history: Chronic Lower leg wound PTSD, Substance Abuse, - Surgical History Past Surgical History?: Yes Hx Coronary Stent: No Hx Pacemaker: No Hx Internal Defibrillator: No Hx Appendectomy: No Additional Surgical History: Left leg surgery, "about 12 sxs since 2013" - Social History Smoking Status: Current Every Day Smoker Substance Use Type: None - Medications Home Medications: Home Medications Medication Instructions Recorded Confirmed Last Taken Type FLUoxetine [PROzac] 20 mg PO QDAY capsule 06/28/18 05/13/19 Unknown Rx traZODone [Desyrel] 50 mg PO QHS PRN tablet 06/28/18 05/13/19 Unknown Rx rOPINIRole [Requip] 0.25 mg PO DAILY 07/05/18 05/13/19 Unknown History Famotidine [Pepcid] 20 mg PO BID #60 tablet 05/09/19 05/13/19 Unknown Rx Ibuprofen [Motrin 800 MG tab] 800 mg PO Q8HR PRN #30 tablet 05/09/19 05/13/19 Unknown Rx Sulfamethoxazole/Trimethoprim 1 each PO BID #14 tablet 05/13/19 Unknown Rx [Bactrim DS TAB] Naproxen 500 mg PO BID PRN #30 tablet 10/18/19 Unknown Rx Sulfamethoxazole/Trimethoprim 1 each PO BID 10 Days #20 tablet 10/18/19 Unknown Rx [Bactrim DS TAB] ED Physical Exam - General Limitations: No Limitations - Head Head exam: Present: atraumatic, normocephalic - Eye Eye exam: Present: normal appearance - ENT ENT exam: Present: mucous membranes moist - Respiratory Respiratory exam: Absent: respiratory distress - Cardiovascular Cardiovascular Exam: Present: tachycardia - Psychiatric Psychiatric exam: Present: agitated ED Course Vital Signs 10/28/19 07:14 Temperature 98.2 F Pulse Rate 104 H Respiratory 18 Rate Blood Pressure 139/80 O2 Sat by Pulse 96 Oximetry DELFINA score - Delfina Score Age > 65: (0) No Aspirin use within the Past 7 Days: (0) No 3 or more CAD Risk Factors: (0) No 2 or more Angina events in past 24 hrs: (0) No Known CAD with more than 50% Stenosis: (0) No Elevated Cardiac Markers: (0) No ST Deviation Greater than 0.5mm: (0) No DELFINA Score: 0 ED Medical Decision Making - Medical Decision Making After walking into the room the patient was asking will see okay over and over again. I explained that we would check labs and see if there is something positive on his drug screen. Patient then told me that he could not walk home and his ride was leaving and he needs ago. 4. Physical exam patient stood up and walked out and stated "I'm going to have to let God be on my side" Critical care attestation.: If time is entered above; I have spent that time in minutes in the direct care of this critically ill patient, excluding procedure time. ED Disposition Clinical Impression: Chest pain Disposition: - LEFT AGAINST MED ADVICE Is pt being admited?: No Does the pt Need Aspirin: No Condition: Stable Instructions: Chest Pain (ED) Time of Disposition: 08:28
[2019-10-28 09:34] LABS: Basophils # (Auto) 0.1 K/mm3 (0.0-0.1); Basophils % (Auto) 1.5 % (0.0-1.8); Eosinophils % (Auto) 0.1 % (0.0-4.3); Hematocrit 40.2 % (35.5-45.6); Hemoglobin 12.8 gm/dl (11.8-15.2); Lymphocytes # (Auto) 0.8 K/mm3 (1.2-5.4); Lymphocytes % (Auto) 8.5 % (13.4-35.0); Mean Corpuscular HGB Conc 32 % (32-34); Mean Corpuscular Volume 77 fl (84-94); Monocytes # (Auto) 0.8 K/mm3 (0.0-0.8); Monocytes % (Auto) 8.4 % (0.0-7.3); Platelet Count 272 K/mm3 (140-440); Red Blood Count 5.25 M/mm3 (3.65-5.03); Red Cell Distribution Width 17.3 % (13.2-15.2)
== END 2019-10-28 08:20 | disposition left against medical advice (07) ==
LOC: ED 06:34
DX: R07.89 Other chest pain (principal); F19.10 Other psychoactive substance abuse, uncomplicated; Z98.890 Other specified postprocedural states; F17.200 Nicotine dependence, unspecified, uncomplicated; Z79.1 Long term (current) use of non-steroidal anti-inflammatories (NSAID); Z79.899 Other long term (current) drug therapy
CPT/HCPCS: 36415; 71046; 85025; 93005; 93010

== ENCOUNTER 2019-11-05 04:33 | Emergency (ER) | payer MEDICAID | END 2019-11-05 05:00 | disposition left against medical advice (07) | LOC: ED 04:33 | DX: R07.89 Other chest pain (principal); Z53.21 Procedure and treatment not carried out due to patient leaving prior to being seen by health care provider | CPT/HCPCS: 93005; 93010 ==

== ENCOUNTER 2021-04-08 21:50 | Emergency (ER) | payer MEDICAID ==
[2021-04-08 22:27] VITALS: BP 132/90
[2021-04-09] MEDS ORDERED: HYDROmorphone 1 MG/1 ML INJ IV ONE ×2 (00:36→01:20)
[2021-04-09] MEDS ORDERED: TETANUS,DIPH,PERTUSS(ACELL) VACCINE 0.5 ML SYRINGE IM ONE (00:36)
[2021-04-09] MEDS ORDERED: ONDANSETRON 4 MG/2 ML INJ IV ONE (00:36)
[2021-04-09] MEDS ORDERED: ONDANSETRON 4 MG/2 ML INJ ONE (00:37)
[2021-04-09] MEDS ORDERED: HYDROmorphone 1 MG/1 ML INJ ONE (00:37)
[2021-04-09] MEDS ORDERED: SODIUM CHLORIDE 0.9% 1000 ML 1,000 ML ONE (00:37)
[2021-04-09] MEDS ORDERED: SODIUM CHLORIDE 0.9% 1000 ML 1,000 ML IV ONE (00:38)
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
--- NOTE | 2021-04-09 00:50 | XRay Report ---
CLINICAL DATA: pain and swelling TECHNICAL DATA: Two views were obtained, AP and lateral. FINDINGS: Soft tissue edema is present. Fracture of the ankle is present. Remaining bones are intact IMPRESSION: Ankle fracture Signer Name: Gilson Barone MD Signed: 04/09/2021 12:46 AM Workstation Name: [id number]
--- NOTE | 2021-04-09 00:51 | XRay Report ---
CLINICAL DATA: pain and swelling TECHNICAL DATA: Two views were obtained, AP and lateral FINDINGS: Comminuted fracture of the distal tibia is present. Marked soft tissue swelling is present. The visua lized joint spaces are normal. IMPRESSION: Comminuted fracture distal tibia Signer Name: Gilson Barone MD Signed: 04/09/2021 12:47 AM Workstation Name: [id number]
[2021-04-09 01:18] LABS: Hematocrit 43.7 % (35.5-45.6); Mean Corpuscular HGB Conc 32 % (32-34); Mean Corpuscular Volume 81 fl (84-94); Platelet Count 295 K/mm3 (140-440); Red Blood Count 5.41 M/mm3 (3.65-5.03); Red Cell Distribution Width 16.1 % (13.2-15.2)
[2021-04-09 01:35] LABS: Alanine Aminotransferase 39 units/L (7-56); Albumin 4.6 g/dL (3.9-5); BUN/Creatinine Ratio 12; Blood Urea Nitrogen 11 mg/dL (9-20); Calcium 9.4 mg/dL (8.4-10.2); Hemolysis Index 3
== END 2021-04-09 02:00 | disposition left against medical advice (07) ==
LOC: ED 21:50
DX: S82.301B Unspecified fracture of lower end of right tibia, initial encounter for open fracture type I or II (principal); M25.571 Pain in right ankle and joints of right foot; F17.200 Nicotine dependence, unspecified, uncomplicated; F12.10 Cannabis abuse, uncomplicated; F14.10 Cocaine abuse, uncomplicated; Z98.890 Other specified postprocedural states; Z79.899 Other long term (current) drug therapy; V29.9XXA Motorcycle rider (driver) (passenger) injured in unspecified traffic accident, initial encounter; Y93.89 Activity, other specified; Y92.410 Unspecified street and highway as the place of occurrence of the external cause; Y99.8 Other external cause status
CPT/HCPCS: 36415; 73600; 73620; 80053; 85027; 96361; 96365; 96375; 96376; 99284; J0690; J1170; J2405; J7030